=== PATIENT | female | born 1960 | race Caucasian/White ===

== ENCOUNTER 2016-11-28 11:20 | Emergency (ER) | payer MEDICAID ==
[2016-11-28 11:20] VITALS: BMI 24.9
[2016-11-28 11:35] VITALS: BP 131/73; PULSE 63; RESP 18; TEMP 97.7; O2SAT 96
[2016-11-28] MEDS ORDERED: Albuterol-Ipratrop 3 mg / 0.5 (3 ml) UD INH STA (11:49)
[2016-11-28] MEDS ORDERED: Albuterol-Ipratrop 3 mg / 0.5 (3 ml) UD ONE (12:44)
--- NOTE | 2016-11-28 13:00 | RAD ---
HISTORY: R chest wall pain cough COMPARISON: No prior. TECHNIQUE: Chest PA and lateral FINDINGS: LUNGS: No active pulmonary disease. PLEURA: No significant pleural effusion identified. No pneumothorax apparent. CARDIOVASCULAR: Normal. OSSEOUS STRUCTURES: Mild levoscoliosis centered in the lower thoracic region. Old healed fracture right posterior 6 rib VISUALIZED UPPER ABDOMEN: Normal. OTHER FINDINGS: None. IMPRESSION: No active disease.
--- NOTE | 2016-11-28 13:19 | ED PDOC ---
HPI: CCC, URI, Sore Throat Time Seen by Provider: 11/28/16 11:45 Chief Complaint (Nursing): Chest Pain Chief Complaint (Provider): right chest wall pain, cough History Per: Patient History/Exam Limitations: no limitations Onset/Duration Of Symptoms: Days (5) Current Symptoms Are (Timing): Still Present Sick Contacts (Context): None Associated Symptoms: Cough. denies: Sore Throat, Sputum, Sinus Drainage, Myalgias, Nasal Congestion, Vomiting, Diarrhea Severity: Moderate Additional Complaint(s): 56yo female c/o right sided chest wall pain, cough and malaise. States fell about a week ago, was seen at another hospital and told "theres a hairline rib fracture", lives in a snf, using albuterol HFA w some improvement. Denies fever, SOB, syncope or hemoptysis. Past Medical History Vital Signs: Last Vital Signs Temp 97.7 F 11/28/16 11:34 Pulse 63 11/28/16 11:34 Resp 18 11/28/16 11:34 BP 131/73 11/28/16 11:34 Pulse Ox 96 11/28/16 11:34 - Medical History PMH: Anxiety, Arthritis, Asthma, Bipolar Disorder, Depression, Pneumonia, Schizophrenia Denies: Chronic Kidney Disease - Surgical History Surgical History: Back Surgery - Immunization History Hx Tetanus Toxoid Vaccination: No Hx Influenza Vaccination: Yes Hx Pneumococcal Vaccination: Yes - Home Medications Home Medications: Ambulatory Orders Medication Instructions Recorded Albuterol HFA [Ventolin HFA 90 2 puff INH Q4 PRN 08/02/16 mcg/actuation (8 g)] Aspirin [Aspirin Chewable] 81 mg PO DAILY 08/02/16 Naproxen [Naprosyn Tab] 1 tab PO DAILY 08/02/16 Pantoprazole [Protonix EC Tab] 20 mg PO DAILY 08/02/16 Sulfamethoxazole/Trimethoprim 1 tab PO BID #20 tab 08/02/16 [Bactrim DS 800 mg-160 mg] clonazePAM [Klonopin] 1 tab PO DAILY 08/02/16 Azithromycin [Zithromax] 250 mg PO DAILY #6 tab 10/28/16 Fluticasone Nasal [Flonase] 1 spray NS DAILY #1 bottle 10/28/16 Oseltamivir Phosphate [Tamiflu] 75 mg PO BID #10 capsule 10/28/16 Ibuprofen [Motrin] 400 mg PO Q6 #30 tab 10/31/16 predniSONE [predniSONE Tab] 40 mg PO DAILY 3 Days 11/20/16 Albuterol 0.083% [Albuterol 0.083% 2.5 mg IH Q4 PRN #20 neb 11/28/16 Inhal Sandra (2.5 mg/3 ml) UD] Azithromycin [Zithromax] 250 mg PO DAILY #6 tab 11/28/16 Naproxen [Naprosyn] 500 mg PO BID PRN #14 tablet 11/28/16 - Allergies Allergies/Adverse Reactions: Allergies Allergy/AdvReac Type Severity Reaction Status Date / Time No Known Allergies Allergy Verified 11/28/16 11:42 - ECG O2 Sat by Pulse Oximetry: 96 Disposition - Clinical Impression Clinical Impression: Bronchitis, Chest wall pain - Disposition Referrals: [facility] [Outside] Condition: STABLE Additional Instructions: Take medications as directed. Return to ER for any new or worsening symptoms. Prescriptions: Albuterol 0.083% [Albuterol 0.083% Inhal Sandra (2.5 mg/3 ml) UD] 2.5 mg IH Q4 PRN #20 neb PRN Reason: Wheezing Naproxen [Naprosyn] 500 mg PO BID PRN #14 tablet PRN Reason: Pain, Moderate (4-7) Azithromycin [Zithromax] 250 mg PO DAILY #6 tab Instructions: Acute Cough (ED), Chest Wall Pain (ED)
== END 2016-11-28 13:21 | disposition home or self-care (01) ==
LOC: H.ER 11:20
DX: J40 Bronchitis, not specified as acute or chronic (principal); R05 Cough; R07.89 Other chest pain

== ENCOUNTER 2016-12-04 14:47 | Emergency (ER) | payer MEDICAID ==
[2016-12-04 14:47] VITALS: BMI 24.9
[2016-12-04 15:15] VITALS: BP 114/71; PULSE 90; RESP 16; TEMP 98.7; O2SAT 100
--- NOTE | 2016-12-04 15:33 | ED PDOC ---
HPI: General Adult Time Seen by Provider: 12/04/16 15:15 Chief Complaint (Nursing): ENT Problem Chief Complaint (Provider): Throat Pain History Per: Patient History/Exam Limitations: no limitations Onset/Duration Of Symptoms: Days (x2) Current Symptoms Are (Timing): Still Present Severity: Mild Additional Complaint(s): Patient is a 56 year old female presenting to the ED complaining of throat pain x2 day. Denies fever or chills. Past Medical History Reviewed: Historical Data, Nursing Documentation, Vital Signs Vital Signs: Last Vital Signs Temp 98.7 F 12/04/16 15:11 Pulse 90 12/04/16 15:11 Resp 16 12/04/16 15:11 BP 114/71 12/04/16 15:11 Pulse Ox 100 12/04/16 16:41 - Medical History PMH: Anxiety, Arthritis, Asthma, Bipolar Disorder, Depression, Pneumonia, Schizophrenia Denies: Chronic Kidney Disease - Surgical History Surgical History: Back Surgery - Family History Family History: States: No Known Family Hx - Immunization History Hx Tetanus Toxoid Vaccination: No Hx Influenza Vaccination: Yes Hx Pneumococcal Vaccination: Yes - Home Medications Home Medications: Ambulatory Orders Medication Instructions Recorded Albuterol HFA [Ventolin HFA 90 2 puff INH Q4 PRN 08/02/16 mcg/actuation (8 g)] Aspirin [Aspirin Chewable] 81 mg PO DAILY 08/02/16 Naproxen [Naprosyn Tab] 1 tab PO DAILY 08/02/16 Pantoprazole [Protonix EC Tab] 20 mg PO DAILY 08/02/16 Sulfamethoxazole/Trimethoprim 1 tab PO BID #20 tab 08/02/16 [Bactrim DS 800 mg-160 mg] clonazePAM [Klonopin] 1 tab PO DAILY 08/02/16 Azithromycin [Zithromax] 250 mg PO DAILY #6 tab 10/28/16 Fluticasone Nasal [Flonase] 1 spray NS DAILY #1 bottle 10/28/16 Oseltamivir Phosphate [Tamiflu] 75 mg PO BID #10 capsule 10/28/16 Ibuprofen [Motrin] 400 mg PO Q6 #30 tab 10/31/16 predniSONE [predniSONE Tab] 40 mg PO DAILY 3 Days 11/20/16 Albuterol 0.083% [Albuterol 0.083% 2.5 mg IH Q4 PRN #20 neb 11/28/16 Inhal Sandra (2.5 mg/3 ml) UD] Azithromycin [Zithromax] 250 mg PO DAILY #6 tab 11/28/16 Naproxen [Naprosyn] 500 mg PO BID PRN #14 tablet 11/28/16 - Allergies Allergies/Adverse Reactions: Allergies Allergy/AdvReac Type Severity Reaction Status Date / Time No Known Allergies Allergy Verified 12/04/16 15:11 Review of Systems ROS Statement: Except As Marked, All Systems Reviewed And Found Negative Constitutional: Negative for: Fever, Chills ENT: Positive for: Throat Pain Physical Exam - Reviewed Nursing Documentation Reviewed: Yes Vital Signs Reviewed: Yes - Physical Exam Appears: Positive for: Well, Non-toxic, No Acute Distress Head Exam: Positive for: ATRAUMATIC, NORMAL INSPECTION, NORMOCEPHALIC Skin: Positive for: Normal Color, Warm, DRY Eye Exam: Positive for: Normal appearance, EOMI ENT: Positive for: Normal ENT Inspection Neck: Positive for: Normal, Painless ROM Cardiovascular/Chest: Positive for: Regular Rate, Rhythm. Negative for: Gallop , Murmur Respiratory: Positive for: Normal Breath Sounds. Negative for: Accessory Muscle Use, Rhonchi, Respiratory Distress Extremity: Positive for: Normal ROM Neurologic/Psych: Positive for: Alert, Oriented - ECG O2 Sat by Pulse Oximetry: 100 Medical Decision Making Medical Decision Making: Time: 15:20 Impression: 56 y/o female with throat pain Plan: Rapid Strep (-) Scribe Attestation: Documented by Tiffanie Moctezuma acting as a scribe for SANDY Maria. Provider Attestation: All medical record entries made by the Scribe were at my direction and personally dictated by me. I have reviewed the chart and agree that the record accurately reflects my personal performance of the history, physical exam, medical decision making, and the department course for this patient. I have also personally directed, reviewed, and agree with the discharge instructions and disposition. Disposition - Clinical Impression Clinical Impression: Tonsillitis - Patient ED Disposition Is Patient to be Admitted: No Counseled Patient/Family Regarding: Diagnosis, Need For Followup - Disposition Referrals: Bethanie Gallego MD [Primary Care Provider] - Disposition: Routine/Home Disposition Time: 16:41 Condition: GOOD Instructions: Tonsillitis (ED)
== END 2016-12-04 17:08 | disposition home or self-care (01) ==
LOC: H.ER 14:47
DX: J03.90 Acute tonsillitis, unspecified (principal)

== ENCOUNTER 2016-12-17 06:57 | Emergency (ER) | payer MEDICAID ==
[2016-12-17 06:57] VITALS: BMI 24.9
--- NOTE | 2016-12-17 08:11 | ED PDOC ---
HPI: CCC, URI, Sore Throat Time Seen by Provider: 12/17/16 07:27 Chief Complaint (Nursing): ENT Problem Chief Complaint (Provider): ENT Problem History Per: Patient History/Exam Limitations: no limitations Onset/Duration Of Symptoms: Days Current Symptoms Are (Timing): Still Present Location Of Pain: Throat Sick Contacts (Context): None Associated Symptoms: denies: Fever, Chills Ear Symptoms: Bilateral: None Severity: Mild Additional Complaint(s): Patient is a 56 year old female who presents to ED for evaluation of sore throat with cough for 3 days. Patient denies fever. States that she was sleeping in the fpc last night and could not breath well due to the heat. Patient also reports an " equilibrium problem," that has been happening since October. Patient states that while walking she developed a stabbing headache with dizziness but denies head injury and has had normal work up in ED in the past. Past Medical History Reviewed: Historical Data, Nursing Documentation, Vital Signs Vital Signs: Last Vital Signs Temp 98.3 F 12/17/16 11:50 Pulse 73 12/17/16 11:50 Resp 18 12/17/16 11:50 BP 97/56 L 12/17/16 11:50 Pulse Ox 97 12/17/16 11:50 - Medical History PMH: Anxiety, Arthritis, Asthma, Bipolar Disorder, Depression, Pneumonia, Schizophrenia Denies: Chronic Kidney Disease - Surgical History Surgical History: Back Surgery - Family History Family History: States: No Known Family Hx - Living Arrangements Living Arrangements: With Family - Immunization History Hx Tetanus Toxoid Vaccination: No Hx Influenza Vaccination: Yes Hx Pneumococcal Vaccination: Yes - Home Medications Home Medications: Ambulatory Orders Medication Instructions Recorded Albuterol HFA [Ventolin HFA 90 2 puff INH Q4 PRN 08/02/16 mcg/actuation (8 g)] Aspirin [Aspirin Chewable] 81 mg PO DAILY 08/02/16 Naproxen [Naprosyn Tab] 1 tab PO DAILY 08/02/16 Pantoprazole [Protonix EC Tab] 20 mg PO DAILY 08/02/16 Sulfamethoxazole/Trimethoprim 1 tab PO BID #20 tab 08/02/16 [Bactrim DS 800 mg-160 mg] clonazePAM [Klonopin] 1 tab PO DAILY 08/02/16 Azithromycin [Zithromax] 250 mg PO DAILY #6 tab 10/28/16 Fluticasone Nasal [Flonase] 1 spray NS DAILY #1 bottle 10/28/16 Oseltamivir Phosphate [Tamiflu] 75 mg PO BID #10 capsule 10/28/16 Ibuprofen [Motrin] 400 mg PO Q6 #30 tab 10/31/16 predniSONE [predniSONE Tab] 40 mg PO DAILY 3 Days 11/20/16 Albuterol 0.083% [Albuterol 0.083% 2.5 mg IH Q4 PRN #20 neb 11/28/16 Inhal Sandra (2.5 mg/3 ml) UD] Azithromycin [Zithromax] 250 mg PO DAILY #6 tab 11/28/16 Naproxen [Naprosyn] 500 mg PO BID PRN #14 tablet 11/28/16 - Allergies Allergies/Adverse Reactions: Allergies Allergy/AdvReac Type Severity Reaction Status Date / Time No Known Allergies Allergy Verified 12/17/16 07:17 Review of Systems ROS Statement: Except As Marked, All Systems Reviewed And Found Negative Constitutional: Negative for: Fever, Chills ENT: Positive for: Throat Pain. Negative for: Ear Pain Cardiovascular: Negative for: Chest Pain, Palpitations Respiratory: Positive for: Cough, Shortness of Breath Gastrointestinal: Negative for: Nausea, Vomiting, Abdominal Pain Neurological: Positive for: Headache, Dizziness. Negative for: Weakness, Numbness Physical Exam - Reviewed Nursing Documentation Reviewed: Yes Vital Signs Reviewed: Yes - Physical Exam Appears: Positive for: Non-toxic, No Acute Distress Skin: Positive for: Normal Color, Warm Eye Exam: Positive for: Normal appearance ENT: Negative for: Pharyngeal Erythema, Tonsillar Exudate Neck: Positive for: Normal, Painless ROM Cardiovascular/Chest: Positive for: Regular Rate, Rhythm. Negative for: Murmur Respiratory: Positive for: Normal Breath Sounds. Negative for: Respiratory Distress Extremity: Positive for: Normal ROM Neurologic/Psych: Positive for: Alert, physician chief of pathology II-XII (grossly intact ), Oriented, Cerebellar Tests - ECG O2 Sat by Pulse Oximetry: 94 (RA) Pulse Ox Interpretation: Normal - CT Scan/US CT head Other Rad Studies (CT/US): Read By Radiologist, Radiology Report Reviewed Other Rad Interpretation: no acute findings Medical Decision Making Medical Decision Making: Time: 744 Initial impression: Pharyngitis r/o strep Initial plan: -- Flu swab -- Rapid strep -- Motrin PO Scribe Attestation: Documented by Beckie Pickering acting as a scribe for Saw Boyce MD MD Scribe Attestation: All medical record entries made by the Scribe were at my direction and personally dictated by me. I have reviewed the chart and agree that the record accurately reflects my personal performance of the history, physical exam, medical decision making, and the department course for this patient. I have also personally directed, reviewed, and agree with the discharge instructions and disposition. Disposition - Clinical Impression Clinical Impression: Pharyngitis, Dizziness - Patient ED Disposition Is Patient to be Admitted: No Doctor Will See Patient In The: Office Counseled Patient/Family Regarding: Studies Performed, Diagnosis, Need For Followup - Disposition Referrals: [facility] [Outside] Disposition: Routine/Home Disposition Time: 12:15 Condition: GOOD Additional Instructions: Take tylenol or motrin for sore throat. Follow up with your PCP in 2-3 days. Instructions: Pharyngitis (ED)
--- NOTE | 2016-12-17 11:11 | CT ---
PROCEDURE: CT HEAD WITHOUT CONTRAST. HISTORY: dizziness COMPARISON: None available. TECHNIQUE: Axial computed tomography images were obtained through the head/brain without intravenous contrast. Coronal and sagittal reconstructed images. Radiation dose: Total exam DLP = 1626.31 mGy-cm. This CT exam was performed using one or more of the following dose reduction techniques: Automated exposure control, adjustment of the mA and/or kV according to patient size, and/or use of iterative reconstruction technique. FINDINGS: HEMORRHAGE: No intracranial hemorrhage. BRAIN: No mass effect or edema. No atrophy or chronic microvascular ischemic changes. VENTRICLES: Unremarkable. No hydrocephalus. CALVARIUM: Unremarkable. PARANASAL SINUSES: Unremarkable as visualized. No significant inflammatory changes. MASTOID AIR CELLS: Unremarkable as visualized. No inflammatory changes. OTHER FINDINGS: None. IMPRESSION: No acute intracranial abnormalities. No significant findings to account for the clinical presentation.
[2016-12-17 11:51] VITALS: BP 97/56; PULSE 73; RESP 18; TEMP 98.3
[2016-12-17 12:17] VITALS: O2SAT 94
== END 2016-12-17 14:35 | disposition home or self-care (01) ==
LOC: H.ER 06:57
DX: J02.9 Acute pharyngitis, unspecified (principal); F20.9 Schizophrenia, unspecified; F31.9 Bipolar disorder, unspecified; F41.9 Anxiety disorder, unspecified; R42 Dizziness and giddiness; Z79.82 Long term (current) use of aspirin; R05 Cough; R51 Headache

== ENCOUNTER 2016-12-18 10:50 | Emergency (ER) | payer MEDICAID ==
[2016-12-18 10:55] VITALS: BP 115/61; PULSE 93; O2SAT 99; BMI 28.9
--- NOTE | 2016-12-18 11:41 | ED PDOC ---
HPI: General Adult Time Seen by Provider: 12/18/16 11:22 Chief Complaint (Nursing): Weakness/Neurological Deficit Chief Complaint (Provider): body aches History Per: Patient History/Exam Limitations: no limitations Additional Complaint(s): 56yo female comes to the ED complaining of fever, cough, chills. Also reports body aches. Patient was seen here yesterday for the same. She had a flu shot this season. Past Medical History Reviewed: Historical Data, Nursing Documentation, Vital Signs Vital Signs: Last Vital Signs Temp 98.1 F 12/18/16 11:52 Pulse 93 H 12/18/16 10:54 Resp BP 115/61 12/18/16 10:54 Pulse Ox 99 12/18/16 14:18 - Medical History PMH: Anxiety, Arthritis, Asthma, Bipolar Disorder, Depression, Pneumonia, Schizophrenia Denies: Chronic Kidney Disease - Surgical History Surgical History: Back Surgery - Family History Family History: States: Unknown Family Hx - Social History Drugs: Denies - Immunization History Hx Tetanus Toxoid Vaccination: No Hx Influenza Vaccination: Yes Hx Pneumococcal Vaccination: Yes - Home Medications Home Medications: Ambulatory Orders Medication Instructions Recorded Albuterol HFA [Ventolin HFA 90 2 puff INH Q4 PRN 08/02/16 mcg/actuation (8 g)] Aspirin [Aspirin Chewable] 81 mg PO DAILY 08/02/16 Naproxen [Naprosyn Tab] 1 tab PO DAILY 08/02/16 Pantoprazole [Protonix EC Tab] 20 mg PO DAILY 08/02/16 Sulfamethoxazole/Trimethoprim 1 tab PO BID #20 tab 08/02/16 [Bactrim DS 800 mg-160 mg] clonazePAM [Klonopin] 1 tab PO DAILY 08/02/16 Azithromycin [Zithromax] 250 mg PO DAILY #6 tab 10/28/16 Fluticasone Nasal [Flonase] 1 spray NS DAILY #1 bottle 10/28/16 Oseltamivir Phosphate [Tamiflu] 75 mg PO BID #10 capsule 10/28/16 Ibuprofen [Motrin] 400 mg PO Q6 #30 tab 10/31/16 predniSONE [predniSONE Tab] 40 mg PO DAILY 3 Days 11/20/16 Albuterol 0.083% [Albuterol 0.083% 2.5 mg IH Q4 PRN #20 neb 11/28/16 Inhal Sandra (2.5 mg/3 ml) UD] Azithromycin [Zithromax] 250 mg PO DAILY #6 tab 11/28/16 Naproxen [Naprosyn] 500 mg PO BID PRN #14 tablet 11/28/16 - Allergies Allergies/Adverse Reactions: Allergies Allergy/AdvReac Type Severity Reaction Status Date / Time No Known Allergies Allergy Verified 12/17/16 07:17 Review of Systems ROS Statement: Except As Marked, All Systems Reviewed And Found Negative Constitutional: Positive for: Fever, Chills ENT: Positive for: Throat Pain Respiratory: Positive for: Cough Physical Exam - Reviewed Nursing Documentation Reviewed: Yes Vital Signs Reviewed: Yes - Physical Exam Appears: Positive for: Well, Non-toxic, No Acute Distress Head Exam: Positive for: ATRAUMATIC, NORMAL INSPECTION, NORMOCEPHALIC Skin: Positive for: Warm, Dry Eye Exam: Positive for: EOMI, PERRL ENT: Positive for: Other (tonsillar erythema) Cardiovascular/Chest: Positive for: Tachycardia Respiratory: Positive for: Normal Breath Sounds. Negative for: Rales, Rhonchi, Wheezing Gastrointestinal/Abdominal: Positive for: Soft. Negative for: Tenderness Extremity: Positive for: Normal ROM - Laboratory Results Result Diagrams: 12/18/16 12:13 12/18/16 12:13 - ECG O2 Sat by Pulse Oximetry: 99 - Progress Re-evaluation Time: 14:00 Condition: Re-examined, Improved Medical Decision Making Medical Decision Makin flu and strep were negative yesterday. Differential includes pneumonia, URI, influenza, tonsillitis. plan: CXR, labs. CT Head w/o Impression (from 12/17/16) No acute intracranial abnormalities. No significant findings to account for the clinical presentation. CXR impression: no active disease 1410 On reassessment patient feeling better. She is stable for discharge. Disposition - Clinical Impression Clinical Impression: URI, acute, Viral syndrome - Patient ED Disposition Is Patient to be Admitted: No Doctor Will See Patient In The: Office Counseled Patient/Family Regarding: Studies Performed, Diagnosis, Need For Followup - Disposition Referrals: [facility] [Outside] Disposition: Routine/Home Disposition Time: 14:10 Condition: GOOD Additional Instructions: Follow up with your PCP in 2-3 days. Instructions: Upper Respiratory Infection (ED) Additional Comments - Additional Comments Additional Comments: Scribe Attestation: Documented by Rinku Zayas acting as a scribe for Saw Boyce MD. Scribe Attestation: All medical record entries made by the Scribe were at my direction and personally dictated by me. I have reviewed the chart and agree that the record accurately reflects my personal performance of the history, physical exam, medical decision making, and the department course for this patient. I have also personally directed, reviewed, and agree with the discharge instructions and disposition.
[2016-12-18 11:52] VITALS: TEMP 98.1
[2016-12-18 12:12] LABS: VENOUS BLOOD GAS BASE EXCESS 2.3 mmol/L (0.0-2.0); VENOUS BLOOD GAS PCO2 39 mmHg (40-60); VENOUS BLOOD PH 7.44 (7.32-7.43)
[2016-12-18 12:26] LABS: BASO % 0.3 % (0.0-2.0); EOS % 0.1 % (0.0-4.0); HEMATOCRIT 31.9 % (34.0-47.0); LYMPH # 0.7 K/uL (1.0-4.3); MEAN CELL VOLUME 74.9 fl (81.0-99.0); MEAN CORPUSCULAR HEMOGLOBIN 24.1 pg (27.0-31.0); MEAN CORPUSCULAR HGB CONC 32.1 g/dL (33.0-37.0); MEAN PLATELET VOLUME 7.8 fl (7.2-11.7); MONO # 0.7 K/uL (0.0-0.8); MONO % 8.4 % (0.0-10.0); NEUT # 6.5 K/uL (1.8-7.0); NEUT % 82.2 % (50.0-75.0); PLATELET COUNT 182 K/uL (130-400); RED CELL DISTRIBUTION WIDTH 14.5 % (11.5-14.5); WHITE BLOOD COUNT 7.9 K/uL (4.8-10.8)
[2016-12-18 12:35] LABS: BLOOD UREA NITROGEN 14 mg/dl (7-17); CALCIUM 8.8 mg/dL (8.4-10.2); CARBON DIOXIDE 22 mmol/L (22-30); CHLORIDE 102 mmol/L (98-107); GFR AFRICAN-AMERICAN > 60; GLUCOSE,RANDOM 109 mg/dL (65-105); POTASSIUM 3.1 MMOL/L (3.6-5.0); SODIUM 139 mmol/l (132-148)
--- NOTE | 2016-12-18 12:35 | RAD ---
PROCEDURE: CHEST RADIOGRAPH, 1 VIEW HISTORY: cough fever COMPARISON: 11/28/2016 FINDINGS: LUNGS: Clear. PLEURA: No pneumothorax or pleural fluid seen. CARDIOVASCULAR: Normal. OSSEOUS STRUCTURES: No significant abnormalities. VISUALIZED UPPER ABDOMEN: Normal. OTHER FINDINGS: None. IMPRESSION: No active disease.
[2016-12-18] MEDS: Potassium Chloride 20 mEq ER Tab PO ONE (12:47)
[2016-12-18 13:40] LABS: NEUTROPHIL 82 % (42-75); REACTIVE LYMPHOCYTES 1 % (0-0); TOTAL CELLS COUNTED 100
[2016-12-18 13:41] LABS: LARGE PLATELETS PRESENT
== END 2016-12-18 14:33 | disposition home or self-care (01) ==
LOC: H.ER 10:50
DX: J06.9 Acute upper respiratory infection, unspecified (principal); R50.9 Fever, unspecified; R05 Cough; F31.9 Bipolar disorder, unspecified; F20.9 Schizophrenia, unspecified; F41.9 Anxiety disorder, unspecified; Z79.82 Long term (current) use of aspirin; B34.9 Viral infection, unspecified; Z87.09 Personal history of other diseases of the respiratory system

== ENCOUNTER 2016-12-19 19:35 | Emergency (ER) | payer MEDICAID ==
[2016-12-19 19:36] VITALS: BMI 28.9
[2016-12-19 20:41] LABS: BASO % 0.2 % (0.0-2.0); EOS % 0.2 % (0.0-4.0); HEMATOCRIT 30.6 % (34.0-47.0); LYMPH # 1.1 K/uL (1.0-4.3); LYMPH % 15.7 % (20.0-40.0); MEAN CELL VOLUME 74.1 fl (81.0-99.0); MEAN CORPUSCULAR HEMOGLOBIN 23.8 pg (27.0-31.0); MEAN CORPUSCULAR HGB CONC 32.1 g/dL (33.0-37.0); MONO # 0.7 K/uL (0.0-0.8); MONO % 9.7 % (0.0-10.0); NEUT # 5.2 K/uL (1.8-7.0); NEUT % 74.2 % (50.0-75.0); RED CELL DISTRIBUTION WIDTH 14.7 % (11.5-14.5)
[2016-12-19 20:50] LABS: ALKALINE PHOSPHATASE 118 U/L (38-126); ALT/SGPT 35 U/L (9-52); AST/SGOT 32 U/L (14-36); BILIRUBIN,TOTAL 0.4 mg/dl (0.2-1.3); BLOOD UREA NITROGEN 19 mg/dl (7-17); CALCIUM 8.6 mg/dL (8.4-10.2); CARBON DIOXIDE 21 mmol/L (22-30); CHLORIDE 102 mmol/L (98-107); GFR AFRICAN-AMERICAN > 60; GLUCOSE,RANDOM 99 mg/dL (65-105); LIPASE 86 U/L (23-300); SODIUM 133 mmol/l (132-148); TOTAL PROTEIN 6.9 G/DL (6.3-8.2)
--- NOTE | 2016-12-19 21:02 | ED PDOC ---
HPI: Abdomen Time Seen by Provider: 12/19/16 19:41 Chief Complaint (Nursing): Abdominal Pain Chief Complaint (Provider): Abdominal Pain History Per: Patient History/Exam Limitations: no limitations Onset/Duration Of Symptoms: Days (x1) Outside of [place] travel?: No Current Symptoms Are (Timing): Still Present Severity: Moderate Location Of Pain/Discomfort: Diffuse Quality Of Discomfort: Unable To Describe Associated Symptoms: denies: Fever, Vomiting, Diarrhea, Loss Of Appetite, Urinary Symptoms Additional Complaint(s): Agata Badillo is a 56 year old female, with no pertinent past medical history, who presents to the ED on 12/19/16 for the evaluation of moderate, diffuse abdominal pain that she has experienced x1 day. Denies vomiting, diarrhea, loss of appetite or urinary complaints, though she does report experiencing some intermittent, subjective fevers since 11/24/16. Of note, patient was evaluated in the ED yesterday for a sinus issue, after which she had been discharged home. Patient reports being homeless and admits to bed seeking behavior, though she states that the onset of abdominal pain is what brought her in today. PMD: Clinic Past Medical History Reviewed: Historical Data, Nursing Documentation, Vital Signs Vital Signs: Last Vital Signs Temp 98.8 F 12/19/16 23:24 Pulse 77 12/19/16 23:24 Resp 16 12/19/16 23:24 BP 107/56 L 12/19/16 23:24 Pulse Ox 95 12/19/16 23:24 - Medical History PMH: Anxiety, Arthritis, Asthma, Bipolar Disorder, Depression, Pneumonia, Schizophrenia Denies: Chronic Kidney Disease Other PMH: heart murmur - Surgical History Surgical History: Back Surgery - Family History Family History: States: Unknown Family Hx - Social History Current smoker - smoking cessation education provided: No Alcohol: None Drugs: Denies - Immunization History Hx Tetanus Toxoid Vaccination: No Hx Influenza Vaccination: Yes Hx Pneumococcal Vaccination: Yes - Home Medications Home Medications: Ambulatory Orders Medication Instructions Recorded Albuterol HFA [Ventolin HFA 90 2 puff INH Q4 PRN 08/02/16 mcg/actuation (8 g)] Aspirin [Aspirin Chewable] 81 mg PO DAILY 08/02/16 Naproxen [Naprosyn Tab] 1 tab PO DAILY 08/02/16 Pantoprazole [Protonix EC Tab] 20 mg PO DAILY 08/02/16 Sulfamethoxazole/Trimethoprim 1 tab PO BID #20 tab 08/02/16 [Bactrim DS 800 mg-160 mg] clonazePAM [Klonopin] 1 tab PO DAILY 08/02/16 Azithromycin [Zithromax] 250 mg PO DAILY #6 tab 10/28/16 Fluticasone Nasal [Flonase] 1 spray NS DAILY #1 bottle 10/28/16 Oseltamivir Phosphate [Tamiflu] 75 mg PO BID #10 capsule 10/28/16 Ibuprofen [Motrin] 400 mg PO Q6 #30 tab 10/31/16 predniSONE [predniSONE Tab] 40 mg PO DAILY 3 Days 11/20/16 Albuterol 0.083% [Albuterol 0.083% 2.5 mg IH Q4 PRN #20 neb 11/28/16 Inhal Sandra (2.5 mg/3 ml) UD] Azithromycin [Zithromax] 250 mg PO DAILY #6 tab 11/28/16 Naproxen [Naprosyn] 500 mg PO BID PRN #14 tablet 11/28/16 Dicyclomine [Bentyl] 20 mg PO Q12 PRN #20 tab 12/19/16 - Allergies Allergies/Adverse Reactions: Allergies Allergy/AdvReac Type Severity Reaction Status Date / Time No Known Allergies Allergy Verified 12/17/16 07:17 Review of Systems Constitutional: Positive for: Fever (subjective) Gastrointestinal: Positive for: Abdominal Pain (diffuse). Negative for: Vomiting, Diarrhea, Other (no loss of appetite) Genitourinary Female: Negative for: Dysuria, Frequency, Hematuria Physical Exam - Reviewed Nursing Documentation Reviewed: Yes Vital Signs Reviewed: Yes - Physical Exam Appears: Positive for: Non-toxic, No Acute Distress Head Exam: Positive for: ATRAUMATIC, NORMOCEPHALIC Skin: Positive for: Normal Color, Warm, Dry Eye Exam: Positive for: Normal appearance, PERRL ENT: Positive for: Normal ENT Inspection Neck: Positive for: Normal, Painless ROM, Supple Cardiovascular/Chest: Positive for: Regular Rate, Rhythm Respiratory: Positive for: Normal Breath Sounds. Negative for: Respiratory Distress Gastrointestinal/Abdominal: Positive for: Normal Exam, Soft. Negative for: Tenderness Back: Positive for: Normal Inspection Extremity: Positive for: Normal ROM (moving all extremities well) Neurologic/Psych: Positive for: Alert, Oriented - Laboratory Results Result Diagrams: 12/19/16 20:30 12/19/16 20:30 - ECG O2 Sat by Pulse Oximetry: 99 (RA) Pulse Ox Interpretation: Normal Medical Decision Making Medical Decision Makin:41 Initial Impression: 56 year old female with abdominal pain and subjective fever Initial Plan: * EKG * Labs * Reevaluation 2300: Labs reviewed, show no clinically significant abnormalities and patient stable for d/c. Dx: abdominal pain Advised patient on possibility of having perimenopausal changes that could explain her subjective sense of fever F/U in the clinic Rx: Bentyl Scribe Attestation: Documented by Audrey Montano, acting as a scribe for Chris Diamond MD. Provider Scribe Attestation: All medical record entries made by the Scribe were at my direction and personally dictated by me. I have reviewed the chart and agree that the record accurately reflects my personal performance of the history, physical exam, medical decision making, and the department course for this patient. I have also personally directed, reviewed, and agree with the discharge instructions and disposition. Disposition - Clinical Impression Clinical Impression: Abdominal pain - Patient ED Disposition Is Patient to be Admitted: No Counseled Patient/Family Regarding: Studies Performed, Diagnosis, Need For Followup, Rx Given - Disposition Disposition: Routine/Home Disposition Time: 23:00 Condition: STABLE Prescriptions: Dicyclomine [Bentyl] 20 mg PO Q12 PRN #20 tab PRN Reason: abdominal pain Instructions: Menopause (ED), Abdominal Pain (ED)
[2016-12-19 21:11] LABS: RBC URINE 3 /hpf (0-3); URINE BILIRUBIN NEGATIVE (NEGATIVE); URINE BLOOD SMALL (NEGATIVE); URINE COLOR YELLOW (YELLOW); URINE GLUCOSE (UA) NEG (Normal); URINE KETONE NEGATIVE (NEGATIVE); URINE LEUKOCYTE ESTERASE NEG Leu/uL (Negative); URINE PROTEIN NEGATIVE (NEGATIVE); URINE UROBILINOGEN 0.2-1.0 mg/dL (0.2-1.0); WBC URINE 1 /hpf (0-5)
[2016-12-19 23:25] VITALS: BP 107/56; PULSE 77; RESP 16; TEMP 98.8
[2016-12-20 00:15] VITALS: O2SAT 99
--- NOTE | 2016-12-22 05:47 | CARD ---
APPROVED REPORT EKG Measurement Heart [id number] <Conclusion> Normal sinus rhythm Normal ECG
== END 2016-12-19 23:32 | disposition home or self-care (01) ==
LOC: H.ER 19:35
DX: R10.9 Unspecified abdominal pain (principal); N95.1 Menopausal and female climacteric states; F20.9 Schizophrenia, unspecified; F31.9 Bipolar disorder, unspecified; F41.9 Anxiety disorder, unspecified; R50.9 Fever, unspecified; Z79.82 Long term (current) use of aspirin

== ENCOUNTER 2017-01-08 12:29 | Emergency (ER) | payer MEDICAID ==
[2017-01-08 12:29] VITALS: BMI 28.9
[2017-01-08 12:42] VITALS: BP 105/74; PULSE 70; RESP 18; TEMP 97.4; O2SAT 100
[2017-01-08] MEDS ORDERED: Naproxen 500 MG TAB PO ONE ×2 (12:49→13:01)
--- NOTE | 2017-01-08 13:06 | ED PDOC ---
Upper Extremity Pain/Injury Time Seen by Provider: 01/08/17 12:43 Chief Complaint (Nursing): Upper Extremity Problem/Injury Chief Complaint (Provider): Upper Extremity Problem/Injury History Per: Patient History/Exam Limitations: no limitations Onset/Duration Of Symptoms: Days (x1) Additional Complaint(s): 12:43 Agata Badillo, 56 year old female presents to the ED on 01/08/17 with pain in her neck localized to the right side after she tripped and fell forward around 21:00 last night. The patient was caught by her friends before she fell down, but hyper flexed her neck. The patient denies any head injury, headache, nausea, vomiting, or loss of consciousness. Provider: None Provided Past Medical History Reviewed: Historical Data, Nursing Documentation, Vital Signs Vital Signs: Last Vital Signs Temp 97.4 F L 01/08/17 12:40 Pulse 70 01/08/17 12:40 Resp 18 01/08/17 12:40 BP 105/74 01/08/17 12:40 Pulse Ox 100 01/08/17 12:40 - Medical History PMH: Anxiety, Arthritis, Asthma, Bipolar Disorder, Depression, Pneumonia, Schizophrenia Denies: Chronic Kidney Disease - Surgical History Surgical History: Back Surgery - Family History Family History: States: Unknown Family Hx - Immunization History Hx Tetanus Toxoid Vaccination: No Hx Influenza Vaccination: Yes Hx Pneumococcal Vaccination: Yes - Home Medications Home Medications: Ambulatory Orders Medication Instructions Recorded Albuterol HFA [Ventolin HFA 90 2 puff INH Q4 PRN 08/02/16 mcg/actuation (8 g)] Aspirin [Aspirin Chewable] 81 mg PO DAILY 08/02/16 Naproxen [Naprosyn Tab] 1 tab PO DAILY 08/02/16 Pantoprazole [Protonix EC Tab] 20 mg PO DAILY 08/02/16 Sulfamethoxazole/Trimethoprim 1 tab PO BID #20 tab 08/02/16 [Bactrim DS 800 mg-160 mg] clonazePAM [Klonopin] 1 tab PO DAILY 08/02/16 Azithromycin [Zithromax] 250 mg PO DAILY #6 tab 10/28/16 Fluticasone Nasal [Flonase] 1 spray NS DAILY #1 bottle 10/28/16 Oseltamivir Phosphate [Tamiflu] 75 mg PO BID #10 capsule 10/28/16 Ibuprofen [Motrin] 400 mg PO Q6 #30 tab 10/31/16 predniSONE [predniSONE Tab] 40 mg PO DAILY 3 Days 11/20/16 Albuterol 0.083% [Albuterol 0.083% 2.5 mg IH Q4 PRN #20 neb 11/28/16 Inhal Sandra (2.5 mg/3 ml) UD] Azithromycin [Zithromax] 250 mg PO DAILY #6 tab 11/28/16 Naproxen [Naprosyn] 500 mg PO BID PRN #14 tablet 11/28/16 Dicyclomine [Bentyl] 20 mg PO Q12 PRN #20 tab 12/19/16 Cyclobenzaprine [Cyclobenzaprine 10 mg PO Q8 PRN #10 tab 01/08/17 HCl] - Allergies Allergies/Adverse Reactions: Allergies Allergy/AdvReac Type Severity Reaction Status Date / Time No Known Allergies Allergy Verified 12/17/16 07:17 Review of Systems Gastrointestinal: Negative for: Nausea, Vomiting Musculoskeletal: Positive for: Neck Pain (localized to the right side). Negative for: Other (No head injury) Neurological: Negative for: Headache, Other (no loss of consciousness) Physical Exam - Reviewed Nursing Documentation Reviewed: Yes Vital Signs Reviewed: Yes - Physical Exam Appears: Positive for: Non-toxic, No Acute Distress Head Exam: Positive for: ATRAUMATIC, NORMOCEPHALIC Skin: Positive for: Normal Color, Warm, Dry Eye Exam: Positive for: Normal appearance ENT: Positive for: Normal ENT Inspection Neck: Positive for: Pain On Movement Of Neck (right sided paracervical muscle tenderness) Cardiovascular/Chest: Positive for: Regular Rate, Rhythm, Chest Non Tender Respiratory: Positive for: Normal Breath Sounds. Negative for: Respiratory Distress Gastrointestinal/Abdominal: Positive for: Normal Exam, Soft. Negative for: Tenderness, Mass, Distended, Guarding, Rebound Back: Positive for: Normal Inspection. Negative for: L CVA Tenderness (no cervical tenderness), R CVA Tenderness (no cervical tenderness), Vertebral Tenderness Extremity: Positive for: Other (equal field mechanical meter tester strength bilaterally) Neurologic/Psych: Positive for: Alert, Oriented (x3) - ECG O2 Sat by Pulse Oximetry: 100 (RA) Pulse Ox Interpretation: Normal - Radiology X-Ray: Interpreted by Me (C-spine x-ray) X-Ray Interpretation: No Acute Disease - Progress Re-evaluation Time: 14:19 Condition: Re-examined, Improved Medical Decision Making Medical Decision Makin:43 Initial Impression: Upper extremity injury/problem Initial Plan: * Cervical Spine AP & Lateral [RAD] Stat * Flexeril 10 mg PO Once * Naproxen 500 mg PO Once * Reevaluation Scribe~Attestation: Documented by Donya Davis, acting as a~scribe~for Judson Monroy PA-C. Provider~Scribe~Attestation: All medical record entries made by the~Scribe~were at my direction and personally dictated by me. I have reviewed the chart and agree that the record accurately reflects my personal performance of the history, physical exam, medical decision making, and the department course for this patient. I have also personally directed, reviewed, and agree with the discharge instructions and disposition. Disposition - Clinical Impression Clinical Impression: Cervical sprain - Patient ED Disposition Is Patient to be Admitted: No - Disposition Referrals: [facility] [Outside] Disposition: Routine/Home Disposition Time: 14:19 Condition: IMPROVED Prescriptions: Cyclobenzaprine [Cyclobenzaprine HCl] 10 mg PO Q8 PRN #10 tab PRN Reason: Muscle Spasm Instructions: Cervical Sprain (ED) Print Language: NEPALI
--- NOTE | 2017-01-08 15:02 | RAD ---
PROCEDURE: Cervical Spine Radiographs. HISTORY: Pain. No history of recent/ related trauma provided COMPARISON: None. FINDINGS: BONES: Moderate kyphosis replaces anatomic lordosis. DISC SPACES: Disc degenerative changes C4-5, C5-6, C6-7. SOFT TISSUES: Normal. No prevertebral soft tissue swelling. OTHER FINDINGS: None. IMPRESSION: No acute findings related to/accounting for the clinical presentation.
== END 2017-01-08 16:31 | disposition home or self-care (01) ==
LOC: H.ER 12:29
DX: S13.4XXA Sprain of ligaments of cervical spine, initial encounter (principal); W19.XXXA Unspecified fall, initial encounter; Y92.89 Other specified places as the place of occurrence of the external cause; F20.9 Schizophrenia, unspecified; F31.9 Bipolar disorder, unspecified; F41.9 Anxiety disorder, unspecified; J45.909 Unspecified asthma, uncomplicated; Z79.82 Long term (current) use of aspirin

== ENCOUNTER 2017-02-11 14:32 | Emergency (ER) | payer MEDICAID ==
[2017-02-11 14:32] VITALS: BMI 28.9
[2017-02-11 14:49] VITALS: BP 110/69; PULSE 77; RESP 16; TEMP 97.7; O2SAT 100
[2017-02-11] MEDS ORDERED: TDAP Vaccine 0.5 mL Syr IM ONE (15:26)
--- NOTE | 2017-02-11 15:40 | ED PDOC ---
HPI: General Adult Time Seen by Provider: 02/11/17 15:21 Chief Complaint (Nursing): Abnormal Skin Integrity History Per: Patient Additional Complaint(s): Pt. states she is having pain to the L 5th toe x several days. Denies trauma, fever, hx of DM, numbness, tingling. Past Medical History Reviewed: Historical Data, Nursing Documentation, Vital Signs Vital Signs: Last Vital Signs Temp 97.7 F 02/11/17 14:44 Pulse 77 02/11/17 14:44 Resp 16 02/11/17 14:44 BP 110/69 02/11/17 14:44 Pulse Ox 100 02/11/17 14:44 - Medical History PMH: Anxiety, Arthritis, Asthma, Bipolar Disorder, Depression, Pneumonia, Schizophrenia Denies: Diabetes, Chronic Kidney Disease - Surgical History Surgical History: Back Surgery - Family History Family History: States: Unknown Family Hx - Immunization History Hx Tetanus Toxoid Vaccination: No Hx Influenza Vaccination: Yes Hx Pneumococcal Vaccination: Yes - Home Medications Home Medications: Ambulatory Orders Medication Instructions Recorded Albuterol HFA [Ventolin HFA 90 2 puff INH Q4 PRN 08/02/16 mcg/actuation (8 g)] Aspirin [Aspirin Chewable] 81 mg PO DAILY 08/02/16 Naproxen [Naprosyn Tab] 1 tab PO DAILY 08/02/16 Pantoprazole [Protonix EC Tab] 20 mg PO DAILY 08/02/16 clonazePAM [Klonopin] 1 tab PO DAILY 08/02/16 Fluticasone Nasal [Flonase] 1 spray NS DAILY #1 bottle 10/28/16 Ibuprofen [Motrin] 400 mg PO Q6 #30 tab 10/31/16 predniSONE [predniSONE Tab] 40 mg PO DAILY 3 Days 11/20/16 Albuterol 0.083% [Albuterol 0.083% 2.5 mg IH Q4 PRN #20 neb 11/28/16 Inhal Sandra (2.5 mg/3 ml) UD] Naproxen [Naprosyn] 500 mg PO BID PRN #14 tablet 11/28/16 Dicyclomine [Bentyl] 20 mg PO Q12 PRN #20 tab 12/19/16 Cyclobenzaprine [Cyclobenzaprine 10 mg PO Q8 PRN #10 tab 01/08/17 HCl] FLUoxetine [Prozac] 10 mg PO DAILY 01/24/17 - Allergies Allergies/Adverse Reactions: Allergies Allergy/AdvReac Type Severity Reaction Status Date / Time No Known Allergies Allergy Verified 02/11/17 14:44 Review of Systems ROS Statement: Except As Marked, All Systems Reviewed And Found Negative Physical Exam - Physical Exam Appears: Positive for: Well, Non-toxic, No Acute Distress Skin: Positive for: Normal Color, Warm. Negative for: Rash Extremity: Positive for: Normal ROM, Other (Superficial abrasion without erythema, swelling, or discharge on plantar surface of L 5th toe without ulcer formation) - ECG O2 Sat by Pulse Oximetry: 100 - Progress ED Course And Treament: Wound cleansed. Bacitracin ointment applied. Tetanus prophylaxis administered. Disposition - Clinical Impression Clinical Impression: Abrasion - Patient ED Disposition Is Patient to be Admitted: No - Disposition Referrals: [facility] [Outside] Disposition: Routine/Home Disposition Time: 15:42 Condition: STABLE Instructions: Abrasion (ED) Print Language: MAORI
== END 2017-02-11 16:11 | disposition home or self-care (01) ==
LOC: H.ER 14:32
DX: T14.8 Other injury of unspecified body region (principal); W22.8XXA Striking against or struck by other objects, initial encounter; Y92.89 Other specified places as the place of occurrence of the external cause; F20.9 Schizophrenia, unspecified; F31.9 Bipolar disorder, unspecified; F41.9 Anxiety disorder, unspecified; J45.909 Unspecified asthma, uncomplicated; Z79.82 Long term (current) use of aspirin

== ENCOUNTER 2017-02-28 11:31 | Emergency (ER) | payer MEDICAID ==
[2017-02-28 11:31] VITALS: BMI 28.9
[2017-02-28 11:34] VITALS: BP 103/72; PULSE 60; RESP 19; TEMP 97.9; O2SAT 99
--- NOTE | 2017-02-28 12:09 | ED PDOC ---
Lower Extremity Pain/Injury Time Seen by Provider: 02/28/17 11:51 Chief Complaint (Nursing): Lower Extremity Problem/Injury History Per: Patient History/Exam Limitations: no limitations Onset/Duration Of Symptoms: Gradual (chronic) Current Symptoms Are (Timing): Still Present Severity: Mild Additional History Per: Patient Additional Complaint(s): diffuse le numbness chronic per patient. no back pain no n/t/w, bowel or bladder retention or incontinence. Past Medical History Reviewed: Historical Data, Nursing Documentation, Vital Signs Vital Signs: Last Vital Signs Temp 97.9 F 02/28/17 11:34 Pulse 60 02/28/17 11:34 Resp 19 02/28/17 11:34 BP 103/72 02/28/17 11:34 Pulse Ox 99 02/28/17 11:34 - Medical History PMH: Anxiety, Arthritis, Asthma, Bipolar Disorder, Depression, Pneumonia, Schizophrenia Denies: Diabetes, Chronic Kidney Disease - Surgical History Surgical History: Back Surgery - Family History Family History: States: Unknown Family Hx - Living Arrangements Living Arrangements: With Family - Social History Drugs: Denies - Immunization History Hx Tetanus Toxoid Vaccination: No Hx Influenza Vaccination: Yes Hx Pneumococcal Vaccination: Yes - Home Medications Home Medications: Ambulatory Orders Medication Instructions Recorded Albuterol HFA [Ventolin HFA 90 2 puff INH Q4 PRN 08/02/16 mcg/actuation (8 g)] Aspirin [Aspirin Chewable] 81 mg PO DAILY 08/02/16 Naproxen [Naprosyn Tab] 1 tab PO DAILY 08/02/16 Pantoprazole [Protonix EC Tab] 20 mg PO DAILY 08/02/16 clonazePAM [Klonopin] 1 tab PO DAILY 08/02/16 Fluticasone Nasal [Flonase] 1 spray NS DAILY #1 bottle 10/28/16 Ibuprofen [Motrin] 400 mg PO Q6 #30 tab 10/31/16 predniSONE [predniSONE Tab] 40 mg PO DAILY 3 Days 11/20/16 Albuterol 0.083% [Albuterol 0.083% 2.5 mg IH Q4 PRN #20 neb 11/28/16 Inhal Sandra (2.5 mg/3 ml) UD] Naproxen [Naprosyn] 500 mg PO BID PRN #14 tablet 11/28/16 Dicyclomine [Bentyl] 20 mg PO Q12 PRN #20 tab 12/19/16 Cyclobenzaprine [Cyclobenzaprine 10 mg PO Q8 PRN #10 tab 01/08/17 HCl] FLUoxetine [Prozac] 10 mg PO DAILY 01/24/17 - Allergies Allergies/Adverse Reactions: Allergies Allergy/AdvReac Type Severity Reaction Status Date / Time No Known Allergies Allergy Verified 02/28/17 11:36 Review of Systems ROS Statement: Except As Marked, All Systems Reviewed And Found Negative Constitutional: Negative for: Fever, Chills Cardiovascular: Negative for: Chest Pain, Palpitations Respiratory: Negative for: Cough, Shortness of Breath Gastrointestinal: Negative for: Nausea, Vomiting, Abdominal Pain Neurological: Positive for: Numbness (chronic le numbness). Negative for: Weakness, Confusion, Seizures, Altered Mental Status, Headache, Dizziness Physical Exam - Reviewed Nursing Documentation Reviewed: Yes Vital Signs Reviewed: Yes - Physical Exam Appears: Positive for: Well, No Acute Distress Head Exam: Positive for: ATRAUMATIC, NORMAL INSPECTION, NORMOCEPHALIC Eye Exam: Positive for: Normal appearance, EOMI, PERRL Neck: Positive for: Normal, Painless ROM, Supple. Negative for: Decreased ROM, Limited ROM, Trachea Midline Cardiovascular/Chest: Positive for: Regular Rate, Rhythm. Negative for: Chest Non Tender, Edema, Gallop, Murmur, Bradycardia, Tachycardia Respiratory: Positive for: Normal Breath Sounds. Negative for: Decreased Breath Sounds, Accessory Muscle Use, Crackles, Rales, Rhonchi, Stridor, Wheezing , Respiratory Distress Pulses-Dorsalis Pedis (L): 2+ Pulses-Dorsalis Pedis (R): 2+ Pulses-Post. Tibialis (L): 2+ Pulses-Post. Tibialis (R): 2+ Gastrointestinal/Abdominal: Positive for: Normal Exam, Soft. Negative for: Tenderness Back: Positive for: Normal Inspection. Negative for: L CVA Tenderness, R CVA Tenderness, Vertebral Tenderness, Decreased ROM, Muscle Spasm Extremity: Positive for: Normal ROM. Negative for: Tenderness, Pedal Edema, Calf Tenderness, Deformity, Swelling Neurologic/Psych: Positive for: Alert, severity of illness coordinator II-XII, Oriented, Motor/Sensory Deficits (nml sensation to sharp. reduced to light touch bl, neg babinski nml strength), Gait (steady). Negative for: Aphasia, Facial Droop - Laboratory Results Result Diagrams: 02/28/17 13:00 02/28/17 12:48 - ECG O2 Sat by Pulse Oximetry: 99 Pulse Ox Interpretation: Normal - Progress ED Course And Treament: advise f/u with pmd or medical clinic pt now ambulating freely. Re-evaluation Time: 13:21 Condition: Improved Disposition - Clinical Impression Clinical Impression: Neuropathy - Patient ED Disposition Is Patient to be Admitted: No Counseled Patient/Family Regarding: Studies Performed, Diagnosis, Need For Followup - Disposition Referrals: [facility] [Outside] (2 to 3 days) Disposition: Routine/Home Disposition Time: 13:22 Condition: GOOD Instructions: Peripheral Neuropathy (ED)
[2017-02-28 13:05] LABS: HEMATOCRIT 35.9 % (34.0-47.0); MEAN CELL VOLUME 76.4 fl (81.0-99.0); MEAN CORPUSCULAR HEMOGLOBIN 24.9 pg (27.0-31.0); MEAN CORPUSCULAR HGB CONC 32.6 g/dL (33.0-37.0); RED CELL DISTRIBUTION WIDTH 16.6 % (11.5-14.5); WHITE BLOOD COUNT 5.8 K/uL (4.8-10.8)
[2017-02-28 13:09] LABS: BLOOD UREA NITROGEN 12 mg/dl (7-17); CALCIUM 8.8 mg/dL (8.4-10.2); CARBON DIOXIDE 24 mmol/L (22-30); CHLORIDE 107 mmol/L (98-107); GFR AFRICAN-AMERICAN > 60; GLUCOSE,RANDOM 75 mg/dL (65-105); POTASSIUM 3.8 MMOL/L (3.6-5.0); SODIUM 140 mmol/l (132-148)
== END 2017-02-28 14:44 | disposition home or self-care (01) ==
LOC: H.ER 11:31
DX: G90.09 Other idiopathic peripheral autonomic neuropathy (principal); F20.9 Schizophrenia, unspecified; F31.9 Bipolar disorder, unspecified; F41.9 Anxiety disorder, unspecified; G62.9 Polyneuropathy, unspecified; J45.909 Unspecified asthma, uncomplicated; Z79.82 Long term (current) use of aspirin

== ENCOUNTER 2017-03-13 07:06 | Emergency (ER) | payer MEDICAID ==
[2017-03-13 07:06] VITALS: BMI 28.9
[2017-03-13 07:36] VITALS: BP 106/72; PULSE 83; RESP 15; TEMP 97; O2SAT 97
--- NOTE | 2017-03-13 08:01 | ED PDOC ---
HPI: CCC, URI, Sore Throat Time Seen by Provider: 03/13/17 07:38 Chief Complaint (Nursing): ENT Problem Chief Complaint (Provider): ENT problem History Per: Patient History/Exam Limitations: no limitations Have you had recent travel within the past 21 days to any of the following countries: [place], [place], [place] or [place]?: No Onset/Duration Of Symptoms: Days (x 1) Associated Symptoms: Cough, Sputum, Sinus Drainage, Nasal Congestion. denies: Fever, Chills, Sore Throat Additional Complaint(s): Agata Badillo is a 57 year old non-domiciled female, with a previous medical history of stroke, heart murmur and pneumonia, who presents to the ED with complaints of sinus pain associated with cough, white sputum production and a postnasal drip ongoing for one day. Patient denies any fevers, chills or rhinorrhea. She states symptoms are similar to previous sinusitis in the past. Patient reports to taking aspirin daily as per a doctor in [place] secondary to her stroke history. PMD: none provided Past Medical History Reviewed: Historical Data, Nursing Documentation, Vital Signs Vital Signs: Last Vital Signs Temp 97 F L 03/13/17 07:30 Pulse 83 03/13/17 07:30 Resp 15 03/13/17 07:30 BP 106/72 03/13/17 07:30 Pulse Ox 97 03/13/17 08:10 - Medical History PMH: Anxiety, Arthritis, Asthma, Bipolar Disorder, Depression, Pneumonia, Schizophrenia Denies: Diabetes, Chronic Kidney Disease Other PMH: stroke - Surgical History Surgical History: Back Surgery - Family History Family History: States: Unknown Family Hx - Immunization History Hx Tetanus Toxoid Vaccination: No Hx Influenza Vaccination: Yes Hx Pneumococcal Vaccination: Yes - Home Medications Home Medications: Ambulatory Orders Medication Instructions Recorded Albuterol HFA [Ventolin HFA 90 2 puff INH Q4 PRN 08/02/16 mcg/actuation (8 g)] Aspirin [Aspirin Chewable] 81 mg PO DAILY 08/02/16 Naproxen [Naprosyn Tab] 1 tab PO DAILY 08/02/16 Pantoprazole [Protonix EC Tab] 20 mg PO DAILY 08/02/16 clonazePAM [Klonopin] 1 tab PO DAILY 08/02/16 Fluticasone Nasal [Flonase] 1 spray NS DAILY #1 bottle 10/28/16 Ibuprofen [Motrin] 400 mg PO Q6 #30 tab 10/31/16 predniSONE [predniSONE Tab] 40 mg PO DAILY 3 Days 11/20/16 Albuterol 0.083% [Albuterol 0.083% 2.5 mg IH Q4 PRN #20 neb 11/28/16 Inhal Sandra (2.5 mg/3 ml) UD] Naproxen [Naprosyn] 500 mg PO BID PRN #14 tablet 11/28/16 Dicyclomine [Bentyl] 20 mg PO Q12 PRN #20 tab 12/19/16 Cyclobenzaprine [Cyclobenzaprine 10 mg PO Q8 PRN #10 tab 01/08/17 HCl] FLUoxetine [Prozac] 10 mg PO DAILY 01/24/17 Guaifenesin/Pseudoephedrne HCl 1 ter PO Q12H PRN #10 ter 03/13/17 [Mucinex D 600 mg-60 mg] - Allergies Allergies/Adverse Reactions: Allergies Allergy/AdvReac Type Severity Reaction Status Date / Time No Known Allergies Allergy Verified 02/28/17 11:36 Review of Systems ROS Statement: Except As Marked, All Systems Reviewed And Found Negative Constitutional: Negative for: Fever, Chills ENT: Positive for: Nose Discharge, Other (sinus pain ) Respiratory: Positive for: Cough, Sputum (white) Physical Exam - Reviewed Nursing Documentation Reviewed: Yes Vital Signs Reviewed: Yes - Physical Exam Appears: Positive for: Well, Non-toxic, No Acute Distress Head Exam: Positive for: ATRAUMATIC, NORMAL INSPECTION, NORMOCEPHALIC Skin: Positive for: Normal Color, Warm, Dry Eye Exam: Positive for: Normal appearance ENT: Positive for: Sinus Pain/Drainage (maxillary sinus bilaterally ). Negative for: Pharyngeal Erythema, Tonsillar Exudate Neck: Positive for: Normal, Painless ROM Cardiovascular/Chest: Positive for: Regular Rate, Rhythm. Negative for: Murmur (normal S1 and S2) Respiratory: Positive for: Normal Breath Sounds. Negative for: Crackles, Rales , Rhonchi, Wheezing, Respiratory Distress Gastrointestinal/Abdominal: Positive for: Normal Exam, Bowel Sounds, Soft. Negative for: Tenderness Back: Positive for: Normal Inspection Extremity: Positive for: Normal ROM. Negative for: Tenderness, Pedal Edema Neurologic/Psych: Positive for: Alert, Oriented - ECG O2 Sat by Pulse Oximetry: 97 (RA) Pulse Ox Interpretation: Normal Medical Decision Making Medical Decision Making: Initial Impression: URI Initial plan: * physical exam * disposition Upon provider evaluation patient is medically stable, and requires no further treatment in the ED at this time. Patient will be discharged with Rx. Counseling was provided and all questions were answered regarding diagnosis and need for follow up. There is agreement to discharge plan. Return if symptoms persist or worsen. Scribe Attestation: Documented by Antoinette Neely, acting as a scribe for Adriana Hodge MD Provider Scribe Attestation: All medical record entries made by the Scribe were at my direction and personally dictated by me. I have reviewed the chart and agree that the record accurately reflects my personal performance of the history, physical exam, medical decision making, and the department course for this patient. I have also personally directed, reviewed, and agree with the discharge instructions and disposition. Disposition - Clinical Impression Clinical Impression: URI (upper respiratory infection) - Patient ED Disposition Is Patient to be Admitted: No Doctor Will See Patient In The: Office Counseled Patient/Family Regarding: Diagnosis, Need For Followup, Rx Given - Disposition Referrals: [facility] [Outside] [facility] [Outside] Disposition: Routine/Home Disposition Time: 08:00 Condition: STABLE Prescriptions: Guaifenesin/Pseudoephedrne HCl [Mucinex D 600 mg-60 mg] 1 ter PO Q12H PRN #10 ter PRN Reason: cough/congestion Instructions: Upper Respiratory Infection (ED) Forms: [employer] (Citizen Of [place]) - POA Present On Arrival: None
== END 2017-03-13 08:20 | disposition home or self-care (01) ==
LOC: H.ER 07:06
DX: J06.9 Acute upper respiratory infection, unspecified (principal); F20.9 Schizophrenia, unspecified; F31.9 Bipolar disorder, unspecified; F41.9 Anxiety disorder, unspecified; Z79.82 Long term (current) use of aspirin; Z86.73 Personal history of transient ischemic attack (TIA), and cerebral infarction without residual deficits

== ENCOUNTER 2017-03-18 11:35 | Emergency (ER) | payer MEDICAID ==
[2017-03-18 11:36] VITALS: BMI 28.9
[2017-03-18 11:43] VITALS: TEMP 98
--- NOTE | 2017-03-18 12:24 | ED PDOC ---
HPI: Headache Time Seen by Provider: 03/18/17 11:50 Chief Complaint (Nursing): Headache Chief Complaint (Provider): Headache History Per: Patient History/Exam Limitations: no limitations Onset/Duration Of Symptoms: Days (x2) Current Symptoms Are (Timing): Still Present Additional Complaint(s): Agata Badillo is a 57 year old female that presents to the ED with a chief complaint of a headache in her left pentecostalism area that she has been experiencing for the past two days. Patient states that she did not fall, and denies any fever, vomiting, diarrhea, abdominal pain, or chest pain. She states that she has not taken any medication for her headache. Of Note: Patient states that she has an adverse reaction to acetaminophen, but can take ibuprofen. Past Medical History Reviewed: Historical Data, Nursing Documentation, Vital Signs Vital Signs: Last Vital Signs Temp 98 F 03/18/17 11:41 Pulse 78 03/18/17 11:41 Resp 20 03/18/17 11:41 BP 107/80 03/18/17 11:41 Pulse Ox 98 03/18/17 11:41 - Medical History PMH: Anxiety, Arthritis, Asthma, Bipolar Disorder, Depression, Pneumonia, Schizophrenia Denies: Diabetes, Chronic Kidney Disease Other PMH: heart murmur - Surgical History Surgical History: Back Surgery - Family History Family History: States: Unknown Family Hx - Social History Current smoker - smoking cessation education provided: No Alcohol: None Drugs: Denies - Immunization History Hx Tetanus Toxoid Vaccination: No Hx Influenza Vaccination: Yes Hx Pneumococcal Vaccination: Yes - Home Medications Home Medications: Ambulatory Orders Medication Instructions Recorded Albuterol HFA [Ventolin HFA 90 2 puff INH Q4 PRN 08/02/16 mcg/actuation (8 g)] Aspirin [Aspirin Chewable] 81 mg PO DAILY 08/02/16 Naproxen [Naprosyn Tab] 1 tab PO DAILY 08/02/16 Pantoprazole [Protonix EC Tab] 20 mg PO DAILY 08/02/16 clonazePAM [Klonopin] 1 tab PO DAILY 08/02/16 Fluticasone Nasal [Flonase] 1 spray NS DAILY #1 bottle 10/28/16 Ibuprofen [Motrin] 400 mg PO Q6 #30 tab 10/31/16 predniSONE [predniSONE Tab] 40 mg PO DAILY 3 Days 11/20/16 Albuterol 0.083% [Albuterol 0.083% 2.5 mg IH Q4 PRN #20 neb 11/28/16 Inhal Sandra (2.5 mg/3 ml) UD] Naproxen [Naprosyn] 500 mg PO BID PRN #14 tablet 11/28/16 Dicyclomine [Bentyl] 20 mg PO Q12 PRN #20 tab 12/19/16 Cyclobenzaprine [Cyclobenzaprine 10 mg PO Q8 PRN #10 tab 01/08/17 HCl] FLUoxetine [Prozac] 10 mg PO DAILY 01/24/17 Guaifenesin/Pseudoephedrne HCl 1 ter PO Q12H PRN #10 ter 03/13/17 [Mucinex D 600 mg-60 mg] - Allergies Allergies/Adverse Reactions: Allergies Allergy/AdvReac Type Severity Reaction Status Date / Time No Known Allergies Allergy Verified 03/18/17 11:41 Review of Systems Constitutional: Negative for: Fever Cardiovascular: Negative for: Chest Pain Gastrointestinal: Negative for: Vomiting, Abdominal Pain, Diarrhea Neurological: Positive for: Headache (left-sided, pentecostalism area) Physical Exam - Reviewed Nursing Documentation Reviewed: Yes Vital Signs Reviewed: Yes - Physical Exam Appears: Positive for: Non-toxic, No Acute Distress Head Exam: Positive for: ATRAUMATIC, NORMOCEPHALIC Skin: Positive for: Normal Color, Warm Eye Exam: Positive for: Normal appearance, EOMI, PERRL Cardiovascular/Chest: Positive for: Regular Rate, Rhythm. Negative for: Murmur Respiratory: Positive for: Normal Breath Sounds. Negative for: Wheezing Gastrointestinal/Abdominal: Positive for: Normal Exam Extremity: Positive for: Normal ROM Neurologic/Psych: Positive for: Alert, clock and watch hands dipper II-XII, Oriented. Negative for: Motor/Sensory Deficits, Aphasia, Facial Droop - Laboratory Results Result Diagrams: 03/18/17 13:40 03/18/17 13:40 - ECG O2 Sat by Pulse Oximetry: 98 (RA) Pulse Ox Interpretation: Normal Medical Decision Making Medical Decision Making: Impression: Headache Plan: * CT Head w/o contrast * CMP * CBC * Reevaluation 14:25 CT Head w/o contrast FINDINGS: HEMORRHAGE: No intracranial hemorrhage. BRAIN: No mass effect or edema. No atrophy or chronic microvascular ischemic changes. VENTRICLES: Unremarkable. No hydrocephalus. CALVARIUM: Unremarkable. PARANASAL SINUSES: Minimal chronic ethmoid sinusitis. MASTOID AIR CELLS: Unremarkable as visualized. No inflammatory changes. OTHER FINDINGS: None. IMPRESSION: No intracranial mass, hemorrhage or evidence of acute infarct. Minimal chronic ethmoid sinusitis. Otherwise unremarkable examination. .... pt noticed to be sleeping throughout ER stay. in no distress. Labs are normal. Patient is feeling better and requires no further treatment in ED. Patient advised to follow up with PMD in the next 1-2 days, and is stable for discharge home. Clinical Impression: Headache Scribe Attestation: Documented by Ruth Ann Zabala, acting as a scribe for Yina Pretty MD. Provider Scribe Attestation: All medical record entries made by the Scribe were at my direction and personally dictated by me. I have reviewed the chart and agree that the record accurately reflects my personal performance of the history, physical exam, medical decision making, and the department course for this patient. I have also personally directed, reviewed, and agree with the discharge instructions and disposition. Disposition - Clinical Impression Clinical Impression: Headache - Patient ED Disposition Is Patient to be Admitted: No Counseled Patient/Family Regarding: Studies Performed, Diagnosis, Need For Followup - Disposition Referrals: [facility] [Outside] [facility] [Outside] Disposition: Routine/Home Disposition Time: 13:25 Condition: IMPROVED Additional Instructions: follow up with your primary doctor in 1-2 days return to the ED with any worsening or concerning symptoms. Instructions: General Headache (ED)
--- NOTE | 2017-03-18 13:51 | CT ---
PROCEDURE: CT HEAD WITHOUT CONTRAST. HISTORY: headache COMPARISON: None available. TECHNIQUE: Axial computed tomography images were obtained through the head/brain without intravenous contrast. Radiation dose: Total exam DLP = 730.87 mGy-cm. This CT exam was performed using one or more of the following dose reduction techniques: Automated exposure control, adjustment of the mA and/or kV according to patient size, and/or use of iterative reconstruction technique. FINDINGS: HEMORRHAGE: No intracranial hemorrhage. BRAIN: No mass effect or edema. No atrophy or chronic microvascular ischemic changes. VENTRICLES: Unremarkable. No hydrocephalus. CALVARIUM: Unremarkable. PARANASAL SINUSES: Minimal chronic ethmoid sinusitis. MASTOID AIR CELLS: Unremarkable as visualized. No inflammatory changes. OTHER FINDINGS: None. IMPRESSION: No intracranial mass, hemorrhage or evidence of acute infarct. Minimal chronic ethmoid sinusitis. Otherwise unremarkable examination.
[2017-03-18 14:01] LABS: BASO % 0.7 % (0.0-2.0); EOS # 0.2 K/uL (0.0-0.7); HEMOGLOBIN 11.8 g/dL (12.0-16.0); LYMPH # 2.2 K/uL (1.0-4.3); LYMPH % 30.8 % (20.0-40.0); MEAN CELL VOLUME 76.4 fl (81.0-99.0); MEAN CORPUSCULAR HGB CONC 32.8 g/dL (33.0-37.0); MEAN PLATELET VOLUME 7.5 fl (7.2-11.7); MONO # 0.5 K/uL (0.0-0.8); MONO % 7.4 % (0.0-10.0); NEUT # 4.1 K/uL (1.8-7.0); NEUT % 58.1 % (50.0-75.0); RBC 4.73 Mil/uL (3.80-5.20); RED CELL DISTRIBUTION WIDTH 16.1 % (11.5-14.5)
[2017-03-18 14:10] LABS: ALB/GLOB RATIO 1.1 (1.0-2.1); ALT/SGPT 31 U/L (9-52); AST/SGOT 33 U/L (14-36); BLOOD UREA NITROGEN 14 mg/dl (7-17); CALCIUM 8.9 mg/dL (8.4-10.2); GFR AFRICAN-AMERICAN > 60; GFR NON-AFRICAN AMERICAN > 60
[2017-03-18 15:28] VITALS: BP 132/76; PULSE 76; RESP 18
[2017-03-19 23:32] VITALS: O2SAT 98
== END 2017-03-18 15:28 | disposition home or self-care (01) ==
LOC: H.ER 11:35
DX: R51 Headache (principal); F20.9 Schizophrenia, unspecified; F31.9 Bipolar disorder, unspecified; F41.9 Anxiety disorder, unspecified; Z79.82 Long term (current) use of aspirin

== ENCOUNTER 2017-05-21 08:52 | Emergency (ER) | payer MEDICAID ==
[2017-05-21 08:52] VITALS: BMI 28.9
[2017-05-21 08:56] VITALS: BP 105/59; PULSE 62; RESP 16; TEMP 96.5
[2017-05-21 08:59] VITALS: O2SAT 98
--- NOTE | 2017-05-21 09:21 | ED PDOC ---
Upper Extremity Pain/Injury Time Seen by Provider: 05/21/17 09:15 Chief Complaint (Nursing): Upper Extremity Problem/Injury History Per: Patient Onset/Duration Of Symptoms: Days (1) Current Symptoms Are (Timing): Still Present Quality: Aching Severity: Mild Pain Scale Rating Of: 2 Exacerbating Factor(s): Movement Additional Complaint(s): Tripped and fell while walking with injury to left shoulder. Pain worse on raising arm. denies haed or neck injury, Past Medical History Vital Signs: Last Vital Signs Temp 96.5 F L 05/21/17 08:55 Pulse 62 05/21/17 08:55 Resp 16 05/21/17 08:55 BP 105/59 L 05/21/17 08:55 Pulse Ox 98 05/21/17 08:57 - Medical History PMH: Anxiety, Arthritis, Asthma, Bipolar Disorder, CVA, Depression, Pneumonia, Schizophrenia Denies: Diabetes, Chronic Kidney Disease - Surgical History Surgical History: Back Surgery - Family History Family History: States: Unknown Family Hx - Immunization History Hx Tetanus Toxoid Vaccination: No Hx Influenza Vaccination: Yes Hx Pneumococcal Vaccination: Yes - Home Medications Home Medications: Ambulatory Orders Medication Instructions Recorded Albuterol HFA [Ventolin HFA 90 2 puff INH Q4 PRN 08/02/16 mcg/actuation (8 g)] Aspirin [Aspirin Chewable] 81 mg PO DAILY 08/02/16 Naproxen [Naprosyn Tab] 1 tab PO DAILY 08/02/16 Pantoprazole [Protonix EC Tab] 20 mg PO DAILY 08/02/16 clonazePAM [Klonopin] 1 tab PO DAILY 08/02/16 Fluticasone Nasal [Flonase] 1 spray NS DAILY #1 bottle 10/28/16 Ibuprofen [Motrin] 400 mg PO Q6 #30 tab 10/31/16 predniSONE [predniSONE Tab] 40 mg PO DAILY 3 Days 11/20/16 Albuterol 0.083% [Albuterol 0.083% 2.5 mg IH Q4 PRN #20 neb 11/28/16 Inhal Sandra (2.5 mg/3 ml) UD] Naproxen [Naprosyn] 500 mg PO BID PRN #14 tablet 11/28/16 Dicyclomine [Bentyl] 20 mg PO Q12 PRN #20 tab 12/19/16 Cyclobenzaprine [Cyclobenzaprine 10 mg PO Q8 PRN #10 tab 01/08/17 HCl] FLUoxetine [Prozac] 10 mg PO DAILY 01/24/17 Guaifenesin/Pseudoephedrne HCl 1 ter PO Q12H PRN #10 ter 03/13/17 [Mucinex D 600 mg-60 mg] Naproxen [Naprosyn] 500 mg PO Q12H #20 tab 05/21/17 - Allergies Allergies/Adverse Reactions: Allergies Allergy/AdvReac Type Severity Reaction Status Date / Time No Known Allergies Allergy Verified 03/18/17 11:41 Review of Systems Cardiovascular: Negative for: Chest Pain Musculoskeletal: Positive for: Shoulder Pain Neurological: Negative for: Weakness, Numbness, Headache, Dizziness Physical Exam - Physical Exam Appears: Positive for: Non-toxic, No Acute Distress Skin: Positive for: Normal Color, Warm, DRY Neck: Positive for: Normal, Painless ROM, Supple Pulses-Radial (L): 2+ Pulses-Radial (R): 2+ Back: Positive for: Normal Inspection, Vertebral Tenderness Extremity: Positive for: Other (Left shoulder ROM limited by pain). Negative for: Tenderness, Deformity, Swelling Neurologic/Psych: Positive for: Alert, Oriented. Negative for: Motor/Sensory Deficits - ECG O2 Sat by Pulse Oximetry: 98 Disposition - Clinical Impression Clinical Impression: Shoulder sprain - Patient ED Disposition Is Patient to be Admitted: No Counseled Patient/Family Regarding: Studies Performed, Diagnosis, Need For Followup, Rx Given - Disposition Referrals: [facility] [Outside] Disposition: Routine/Home Disposition Time: 09:50 Condition: FAIR Prescriptions: Naproxen [Naprosyn] 500 mg PO Q12H #20 tab Instructions: Shoulder Sprain (ED) Forms: [employer] (Sinhala)
--- NOTE | 2017-05-21 12:36 | RAD ---
PROCEDURE: Radiographs of the Left Shoulder HISTORY: trauma COMPARISON: No prior. FINDINGS: BONES: Normal. No fracture. JOINTS: Normal. Glenohumeral and acromioclavicular joints preserved. No osteoarthritis. SOFT TISSUES: Normal. OTHER FINDINGS: None. IMPRESSION: Normal radiographs of the left shoulder.
== END 2017-05-21 10:57 | disposition home or self-care (01) ==
LOC: H.ER 08:52
DX: S49.92XA Unspecified injury of left shoulder and upper arm, initial encounter (principal); W19.XXXA Unspecified fall, initial encounter; Y92.89 Other specified places as the place of occurrence of the external cause; F20.9 Schizophrenia, unspecified; F31.9 Bipolar disorder, unspecified; F41.9 Anxiety disorder, unspecified; J45.909 Unspecified asthma, uncomplicated; Z79.82 Long term (current) use of aspirin; Z86.73 Personal history of transient ischemic attack (TIA), and cerebral infarction without residual deficits

== ENCOUNTER 2017-06-05 09:16 | Emergency (ER) | payer MEDICAID ==
[2017-06-05 09:25] VITALS: BP 125/65; PULSE 66; RESP 20; TEMP 97; O2SAT 96
[2017-06-05 09:26] VITALS: BMI 22.4
--- NOTE | 2017-06-05 10:09 | ED PDOC ---
HPI: General Adult Time Seen by Provider: 06/05/17 09:28 Chief Complaint (Nursing): Abnormal Skin Integrity Chief Complaint (Provider): Abnormal Skin Integrity History Per: Patient History/Exam Limitations: no limitations Current Symptoms Are (Timing): Still Present Additional Complaint(s): 57 y/o female presents to the emergency department with calluses to both palms. Patient pulls two big suitcases causing her complaint because she is undomiciled. Denies any further medical complaints. Past Medical History Reviewed: Historical Data, Nursing Documentation, Vital Signs Vital Signs: Last Vital Signs Temp 97 F L 06/05/17 09:25 Pulse 66 06/05/17 09:25 Resp 20 06/05/17 09:25 BP 125/65 06/05/17 09:25 Pulse Ox 96 06/05/17 10:10 - Medical History PMH: Anxiety, Arthritis, Asthma, Bipolar Disorder, CVA, Depression, Pneumonia, Schizophrenia Denies: Diabetes, Chronic Kidney Disease - Surgical History Surgical History: Back Surgery - Family History Family History: States: Unknown Family Hx - Social History Current smoker - smoking cessation education provided: No Alcohol: None Drugs: Denies - Immunization History Hx Tetanus Toxoid Vaccination: No Hx Influenza Vaccination: Yes Hx Pneumococcal Vaccination: Yes - Home Medications Home Medications: Ambulatory Orders Medication Instructions Recorded Albuterol HFA [Ventolin HFA 90 2 puff INH Q4 PRN 08/02/16 mcg/actuation (8 g)] Aspirin [Aspirin Chewable] 81 mg PO DAILY 08/02/16 Naproxen [Naprosyn Tab] 1 tab PO DAILY 08/02/16 Pantoprazole [Protonix EC Tab] 20 mg PO DAILY 08/02/16 clonazePAM [Klonopin] 1 tab PO DAILY 08/02/16 Fluticasone Nasal [Flonase] 1 spray NS DAILY #1 bottle 10/28/16 Ibuprofen [Motrin] 400 mg PO Q6 #30 tab 10/31/16 predniSONE [predniSONE Tab] 40 mg PO DAILY 3 Days tab 11/20/16 Albuterol 0.083% [Albuterol 0.083% 2.5 mg IH Q4 PRN #20 neb 11/28/16 Inhal Sandra (2.5 mg/3 ml) UD] Naproxen [Naprosyn] 500 mg PO BID PRN #14 tablet 11/28/16 Dicyclomine [Bentyl] 20 mg PO Q12 PRN #20 tab 12/19/16 Cyclobenzaprine [Cyclobenzaprine 10 mg PO Q8 PRN #10 tab 01/08/17 HCl] FLUoxetine [Prozac] 10 mg PO DAILY 01/24/17 Guaifenesin/Pseudoephedrne HCl 1 ter PO Q12H PRN #10 ter 03/13/17 [Mucinex D 600 mg-60 mg] Naproxen [Naprosyn] 500 mg PO Q12H #20 tab 05/21/17 - Allergies Allergies/Adverse Reactions: Allergies Allergy/AdvReac Type Severity Reaction Status Date / Time No Known Allergies Allergy Verified 03/18/17 11:41 Review of Systems ROS Statement: Except As Marked, All Systems Reviewed And Found Negative Musculoskeletal: Positive for: Other (Calluses on both palms) Physical Exam - Reviewed Nursing Documentation Reviewed: Yes Vital Signs Reviewed: Yes - Physical Exam Appears: Positive for: Non-toxic, No Acute Distress Head Exam: Positive for: ATRAUMATIC, NORMAL INSPECTION, NORMOCEPHALIC Skin: Positive for: Normal Color, Warm, Dry Neck: Positive for: Normal, Supple Cardiovascular/Chest: Positive for: Regular Rate, Rhythm. Negative for: Murmur Respiratory: Positive for: Normal Breath Sounds. Negative for: Accessory Muscle Use, Respiratory Distress Extremity: Positive for: Other (Calluses on palms b/l). Negative for: Tenderness (No fluctuance, erythema, edema, or tenderness) Neurologic/Psych: Positive for: Alert, Oriented (x3) - ECG O2 Sat by Pulse Oximetry: 96 (RA) Pulse Ox Interpretation: Normal Medical Decision Making Medical Decision Making: Time: 10:00 Initial Impression: Calluses to the palms Initial Plan: Scribe Attestation: Documented by Johana Velazquez, acting as a scribe for Antoinette Do MD. Provider Scribe Attestation: All medical record entries made by the Scribe were at my direction and personally dictated by me. I have reviewed the chart and agree that the record accurately reflects my personal performance of the history, physical exam, medical decision making, and the department course for this patient. I have also personally directed, reviewed, and agree with the discharge instructions and disposition. Disposition - Clinical Impression Clinical Impression: Callus - Disposition Referrals: [facility] [Outside] Disposition: Routine/Home Disposition Time: 09:59 Condition: STABLE Additional Instructions: APPLY AQUAPHOR NEEDED. Instructions: Itchy Skin (ED) Forms: [employer] ([place])
== END 2017-06-05 10:15 | disposition home or self-care (01) ==
LOC: H.ER 09:16
DX: L84 Corns and callosities (principal)

== ENCOUNTER 2017-06-23 08:07 | Emergency (ER) | payer MEDICAID ==
[2017-06-23 08:07] VITALS: BMI 22.4
[2017-06-23 08:22] VITALS: O2SAT 100
--- NOTE | 2017-06-23 08:33 | ED PDOC ---
HPI: Chest Pain Time Seen by Provider: 06/23/17 08:19 Chief Complaint (Nursing): Chest Pain Chief Complaint (Provider): Chest Pain History Per: Patient (Chest pain worse on inspiration) History/Exam Limitations: no limitations Onset/Duration Of Symptoms: Hrs Current Symptoms Are (Timing): Still Present Quality: Sharp Associated Symptoms: denies: Nausea, Dyspnea, Diaphoresis, Syncope Modifying Factors: None Exacerbating Factors: None Alleviating Factors: None Additional History Per: Patient Additional Complaint(s): Patient is a 57 year old female, with Past medical history of CVA, presents to Emergency Department for evaluation of sharp sub-sternal chest pain since this morning. Patient denies any radiation of pain, or associated shortness of breath. Denies cough, sputum, or fever. Past Medical History Reviewed: Historical Data, Nursing Documentation, Vital Signs Vital Signs: Last Vital Signs Temp 97.8 F 06/23/17 08:25 Pulse 62 06/23/17 08:57 Resp 12 06/23/17 08:25 BP 111/75 06/23/17 08:25 Pulse Ox 100 06/23/17 08:57 - Medical History PMH: Anxiety, Arthritis, Asthma, Bipolar Disorder, CVA, Depression, Pneumonia, Schizophrenia Denies: Diabetes, Chronic Kidney Disease - Surgical History Surgical History: Back Surgery - Family History Family History: States: Unknown Family Hx - Immunization History Hx Tetanus Toxoid Vaccination: No Hx Influenza Vaccination: Yes Hx Pneumococcal Vaccination: Yes - Home Medications Home Medications: Ambulatory Orders Medication Instructions Recorded Albuterol HFA [Ventolin HFA 90 2 puff INH Q4 PRN 08/02/16 mcg/actuation (8 g)] Aspirin [Aspirin Chewable] 81 mg PO DAILY 08/02/16 Naproxen [Naprosyn Tab] 1 tab PO DAILY 08/02/16 Pantoprazole [Protonix EC Tab] 20 mg PO DAILY 08/02/16 clonazePAM [Klonopin] 1 tab PO DAILY 08/02/16 Fluticasone Nasal [Flonase] 1 spray NS DAILY #1 bottle 10/28/16 Ibuprofen [Motrin] 400 mg PO Q6 #30 tab 10/31/16 predniSONE [predniSONE Tab] 40 mg PO DAILY 3 Days tab 11/20/16 Albuterol 0.083% [Albuterol 0.083% 2.5 mg IH Q4 PRN #20 neb 11/28/16 Inhal Sandra (2.5 mg/3 ml) UD] Naproxen [Naprosyn] 500 mg PO BID PRN #14 tablet 11/28/16 Dicyclomine [Bentyl] 20 mg PO Q12 PRN #20 tab 12/19/16 Cyclobenzaprine [Cyclobenzaprine 10 mg PO Q8 PRN #10 tab 01/08/17 HCl] FLUoxetine [Prozac] 10 mg PO DAILY 01/24/17 Guaifenesin/Pseudoephedrne HCl 1 ter PO Q12H PRN #10 ter 03/13/17 [Mucinex D 600 mg-60 mg] Naproxen [Naprosyn] 500 mg PO Q12H #20 tab 05/21/17 Naproxen [Naprosyn] 500 mg PO Q12H #20 tab 06/23/17 - Allergies Allergies/Adverse Reactions: Allergies Allergy/AdvReac Type Severity Reaction Status Date / Time No Known Allergies Allergy Verified 06/23/17 08:25 Review of Systems Constitutional: Negative for: Fever, Chills Cardiovascular: Positive for: Chest Pain. Negative for: Palpitations, Edema, Light Headedness Respiratory: Negative for: Cough, Shortness of Breath Neurological: Negative for: Headache, Dizziness Physical Exam - Reviewed Nursing Documentation Reviewed: Yes Vital Signs Reviewed: Yes - Physical Exam Appears: Positive for: Non-toxic, No Acute Distress Head Exam: Positive for: ATRAUMATIC, NORMOCEPHALIC Skin: Positive for: Normal Color, Warm, Dry Eye Exam: Positive for: EOMI, Normal appearance, PERRL Neck: Positive for: Normal, Supple Cardiovascular/Chest: Positive for: Regular Rate, Rhythm. Negative for: Chest Non Tender (Infrasternal chest wall tenderness.), Murmur Respiratory: Positive for: Normal Breath Sounds. Negative for: Respiratory Distress Gastrointestinal/Abdominal: Positive for: Soft. Negative for: Tenderness Extremity: Positive for: Normal ROM. Negative for: Tenderness, Pedal Edema, Swelling Neurologic/Psych: Positive for: Alert, Oriented, Other. Negative for: Motor/ Sensory Deficits - Laboratory Results Result Diagrams: 06/23/17 09:15 06/23/17 09:15 - ECG ECG: Positive for: Interpreted By Me, Viewed By Me ECG Rhythm: Positive for: Sinus Rhythm Interpretation Of ECG: No acute ST/T wave changes. Rate: 62 (bpm) O2 Sat by Pulse Oximetry: 100 (on RA) Pulse Ox Interpretation: Normal Medical Decision Making Medical Decision Making: Plan: EKG Chest x-ray CMP, CBC, Troponin Disposition - Clinical Impression Clinical Impression: Chest wall tenderness, Pleuritic chest pain - Patient ED Disposition Is Patient to be Admitted: No Counseled Patient/Family Regarding: Studies Performed, Diagnosis, Need For Followup, Rx Given - Disposition Referrals: [facility] [Outside] Disposition: Routine/Home Disposition Time: 10:06 Condition: FAIR Prescriptions: Naproxen [Naprosyn] 500 mg PO Q12H #20 tab Instructions: Costochondritis (ED), Pleurisy (ED) Forms: [employer] (Macanese) - PA / [employer] NOTCHER / Resident Statement MD/DO has reviewed & agrees with the documentation as recorded. (Fabien Lloyd All medical record entries made by the Scribe were at my direction and personally dictated by me. I have reviewed the chart and agree that the record accurately reflects my personal performance of the history, physical exam, medical decision making, and the department course for this patient. I have also personally directed, reviewed, and agree with the discharge instructions and disposition.)
[2017-06-23 08:57] VITALS: PULSE 62
[2017-06-23 09:20] LABS: BASO % 0.7 % (0.0-2.0); EOS # 0.2 K/uL (0.0-0.7); EOS % 3.4 % (0.0-4.0); HEMATOCRIT 34.4 % (34.0-47.0); LYMPH # 1.3 K/uL (1.0-4.3); LYMPH % 27.5 % (20.0-40.0); MEAN CELL VOLUME 77.8 fl (81.0-99.0); MEAN CORPUSCULAR HEMOGLOBIN 25.7 pg (27.0-31.0); MEAN PLATELET VOLUME 7.2 fl (7.2-11.7); MONO # 0.4 K/uL (0.0-0.8); MONO % 8.1 % (0.0-10.0); NEUT # 2.8 K/uL (1.8-7.0); NEUT % 60.3 % (50.0-75.0); RED CELL DISTRIBUTION WIDTH 15.1 % (11.5-14.5); WHITE BLOOD COUNT 4.7 K/uL (4.8-10.8)
[2017-06-23 09:41] LABS: ALB/GLOB RATIO 1.2 (1.0-2.1); ALKALINE PHOSPHATASE 107 U/L (38-126); ALT/SGPT 33 U/L (9-52); AST/SGOT 27 U/L (14-36); BILIRUBIN,TOTAL 0.3 mg/dl (0.2-1.3); BLOOD UREA NITROGEN 13 mg/dl (7-17); CALCIUM 9.2 mg/dL (8.4-10.2); CARBON DIOXIDE 28 mmol/L (22-30); CHLORIDE 106 mmol/L (98-107); GFR AFRICAN-AMERICAN > 60; GLUCOSE,RANDOM 74 mg/dL (65-105); POTASSIUM 3.4 MMOL/L (3.6-5.0); SODIUM 144 mmol/l (132-148); TOTAL PROTEIN 6.9 G/DL (6.3-8.2)
[2017-06-23 10:35] VITALS: BP 106/58; RESP 18; TEMP 98
--- NOTE | 2017-06-24 07:48 | CARD ---
APPROVED REPORT EKG Measurement Heart [id number] <Conclusion> Normal sinus rhythm Normal ECG
== END 2017-06-23 10:50 | disposition home or self-care (01) ==
LOC: H.ER 08:07
DX: R07.89 Other chest pain (principal); R09.1 Pleurisy; F20.9 Schizophrenia, unspecified; F31.9 Bipolar disorder, unspecified; F41.9 Anxiety disorder, unspecified; Z79.82 Long term (current) use of aspirin; Z86.73 Personal history of transient ischemic attack (TIA), and cerebral infarction without residual deficits

== ENCOUNTER 2017-07-18 08:36 | Emergency (ER) | payer MEDICAID ==
[2017-07-18 08:37] VITALS: BMI 22.4
[2017-07-18 08:45] VITALS: TEMP 97.8
--- NOTE | 2017-07-18 09:42 | ED PDOC ---
HPI: Chest Pain Time Seen by Provider: 07/18/17 09:09 Chief Complaint (Nursing): Chest Pain History Per: Patient History/Exam Limitations: no limitations Onset/Duration Of Symptoms: Days (1) Current Symptoms Are (Timing): Still Present Severity: Moderate Pain Scale Rating Of: 4 Quality: Dull Associated Symptoms: denies: Nausea, Dyspnea, Diaphoresis Modifying Factors: None Exacerbating Factors: Deep Breathing Alleviating Factors: None Additional History Per: Patient Additional Complaint(s): Pt co chest pain for 1 day. Non radiating and non exertional. She took ASA yesterday for pain. Pain is less today. No SOB, cough, leg swelling. Past Medical History Reviewed: Historical Data, Nursing Documentation, Vital Signs Vital Signs: Last Vital Signs Temp 97.8 F 07/18/17 08:44 Pulse 85 07/18/17 12:24 Resp 16 07/18/17 08:44 BP 116/82 07/18/17 08:44 Pulse Ox 98 07/18/17 12:24 - Medical History PMH: Anxiety, Arthritis, Asthma, Bipolar Disorder, CVA, Depression, Pneumonia, Schizophrenia Denies: Diabetes, Chronic Kidney Disease - Surgical History Surgical History: Back Surgery - Family History Family History: States: Unknown Family Hx - Living Arrangements Living Arrangements: Other (Homeless) - Immunization History Hx Tetanus Toxoid Vaccination: No Hx Influenza Vaccination: Yes Hx Pneumococcal Vaccination: Yes - Home Medications Home Medications: Ambulatory Orders Medication Instructions Recorded Albuterol HFA [Ventolin HFA 90 2 puff INH Q4 PRN 08/02/16 mcg/actuation (8 g)] Aspirin [Aspirin Chewable] 81 mg PO DAILY 08/02/16 Naproxen [Naprosyn Tab] 1 tab PO DAILY 08/02/16 Pantoprazole [Protonix EC Tab] 20 mg PO DAILY 08/02/16 clonazePAM [Klonopin] 1 tab PO DAILY 08/02/16 Fluticasone Nasal [Flonase] 1 spray NS DAILY #1 bottle 10/28/16 Ibuprofen [Motrin] 400 mg PO Q6 #30 tab 10/31/16 predniSONE [predniSONE Tab] 40 mg PO DAILY 3 Days tab 11/20/16 Albuterol 0.083% [Albuterol 0.083% 2.5 mg IH Q4 PRN #20 neb 11/28/16 Inhal Sandra (2.5 mg/3 ml) UD] Naproxen [Naprosyn] 500 mg PO BID PRN #14 tablet 11/28/16 Dicyclomine [Bentyl] 20 mg PO Q12 PRN #20 tab 12/19/16 Cyclobenzaprine [Cyclobenzaprine 10 mg PO Q8 PRN #10 tab 01/08/17 HCl] FLUoxetine [Prozac] 10 mg PO DAILY 01/24/17 Guaifenesin/Pseudoephedrne HCl 1 ter PO Q12H PRN #10 ter 03/13/17 [Mucinex D 600 mg-60 mg] Naproxen [Naprosyn] 500 mg PO Q12H #20 tab 05/21/17 Naproxen [Naprosyn] 500 mg PO Q12H #20 tab 06/23/17 - Allergies Allergies/Adverse Reactions: Allergies Allergy/AdvReac Type Severity Reaction Status Date / Time No Known Allergies Allergy Verified 06/23/17 08:25 SHERI Risk Score for UA/NSTEMI - SHERI Risk Score Age > 64: NO 3 or more CAD Risk Factors: NO Known CAD (Stenosis greater than 50%): NO Aspirin use in past 7 days: NO Severe Angina: NO EKG ST changes greater than 0.5mm: NO Positive Cardiac Marker: NO SHERI Score: 0 Risk %: 5% Wells Criteria for PE - Wells Criteria for Pulmonary Embolism Clinical Signs and Symptoms of DVT: No P.E is #1 Diagnosis, or Equally Likely: No Heart Rate >100: No Immobilization at least 3 days;Surgery previous 4 weeks: No Previous, objectively diagnosed PE or DVT: No Hemoptysis: No Malignancy w/treatment within 6 months, or palliative: No Total Score: 0 Review of Systems ROS Statement: Except As Marked, All Systems Reviewed And Found Negative Physical Exam - Reviewed Nursing Documentation Reviewed: Yes Vital Signs Reviewed: Yes - Physical Exam Appears: Positive for: Well, Non-toxic, No Acute Distress Head Exam: Positive for: ATRAUMATIC, NORMAL INSPECTION Skin: Positive for: Warm, Dry Eye Exam: Positive for: EOMI Neck: Positive for: Painless ROM, Supple Cardiovascular/Chest: Positive for: Regular Rate, Rhythm. Negative for: Tachycardia Respiratory: Positive for: Normal Breath Sounds. Negative for: Wheezing, Respiratory Distress Gastrointestinal/Abdominal: Positive for: Soft. Negative for: Tenderness Extremity: Positive for: Normal ROM Neurologic/Psych: Positive for: Alert, Oriented - Laboratory Results Result Diagrams: 07/18/17 09:50 07/18/17 09:50 - ECG ECG: Positive for: Interpreted By Me, Viewed By Me ECG Rhythm: Positive for: Normal QRS, Normal ST Segment, Sinus Rhythm. Negative for: ST/T Changes Rate: 85 O2 Sat by Pulse Oximetry: 98 - Radiology X-Ray: Interpreted by Me, Viewed By Me X-Ray Interpretation: No Acute Disease - Progress Re-evaluation Time: 14:05 Condition: Re-examined, Improved Medical Decision Making Medical Decision Making: Impression Chest pain Diff includes ACS, chest wall pain Plan EKG Labs CXR reassess Disposition - Clinical Impression Clinical Impression: Chest pain - Patient ED Disposition Is Patient to be Admitted: No Doctor Will See Patient In The: Office Counseled Patient/Family Regarding: Studies Performed, Diagnosis, Need For Followup - Disposition Referrals: [facility] [Outside] Disposition: Routine/Home Disposition Time: 14:05 Condition: GOOD Additional Instructions: Follow up with your PCP in 2-3 days. Instructions: Chest Pain (ED)
[2017-07-18 10:08] LABS: BASO % 0.5 % (0.0-2.0); EOS # 0.2 K/uL (0.0-0.7); EOS % 2.7 % (0.0-4.0); HEMATOCRIT 35.4 % (34.0-47.0); LYMPH # 1.8 K/uL (1.0-4.3); LYMPH % 28.8 % (20.0-40.0); MEAN CELL VOLUME 76.4 fl (81.0-99.0); MEAN CORPUSCULAR HEMOGLOBIN 25.2 pg (27.0-31.0); MEAN PLATELET VOLUME 7.2 fl (7.2-11.7); MONO # 0.5 K/uL (0.0-0.8); MONO % 8.6 % (0.0-10.0); NEUT # 3.6 K/uL (1.8-7.0); NEUT % 59.4 % (50.0-75.0); RED CELL DISTRIBUTION WIDTH 14.2 % (11.5-14.5); WHITE BLOOD COUNT 6.1 K/uL (4.8-10.8)
[2017-07-18 10:33] LABS: BLOOD UREA NITROGEN 15 mg/dl (7-17); CARBON DIOXIDE 25 mmol/L (22-30); CHLORIDE 107 mmol/L (98-107); GFR AFRICAN-AMERICAN > 60; GLUCOSE,RANDOM 92 mg/dL (65-105); POTASSIUM 3.7 MMOL/L (3.6-5.0); SODIUM 141 mmol/l (132-148)
--- NOTE | 2017-07-18 12:26 | RAD ---
PROCEDURE: CHEST RADIOGRAPH, 1 VIEW HISTORY: chest pain COMPARISON: Comparison chest 06/23/2017 FINDINGS: LUNGS: Clear. PLEURA: No pneumothorax or pleural fluid seen. CARDIOVASCULAR: Normal. OSSEOUS STRUCTURES: No significant abnormalities. VISUALIZED UPPER ABDOMEN: Normal. OTHER FINDINGS: None. IMPRESSION: No active disease.
[2017-07-18 15:10] VITALS: BP 116/67; PULSE 74; RESP 17; O2SAT 100
--- NOTE | 2017-07-19 21:17 | CARD ---
APPROVED REPORT EKG Measurement Heart [id number] MA [id number] <Conclusion> Normal sinus rhythm with sinus arrhythmia Normal ECG
== END 2017-07-18 15:04 | disposition home or self-care (01) ==
LOC: H.ER 08:36
DX: R07.89 Other chest pain (principal); J45.909 Unspecified asthma, uncomplicated; F20.9 Schizophrenia, unspecified; F31.9 Bipolar disorder, unspecified; F41.9 Anxiety disorder, unspecified; Z79.82 Long term (current) use of aspirin; Z86.73 Personal history of transient ischemic attack (TIA), and cerebral infarction without residual deficits

== ENCOUNTER 2017-07-19 11:10 | Emergency (ER) | payer MEDICAID ==
[2017-07-19 11:12] VITALS: BMI 26.6
[2017-07-19 11:13] VITALS: BP 134/74; PULSE 94; RESP 16; TEMP 97.7; O2SAT 100
--- NOTE | 2017-07-19 11:26 | ED PDOC ---
HPI: General Adult Time Seen by Provider: 07/19/17 11:19 Chief Complaint (Nursing): Back Pain Chief Complaint (Provider): Depressed History Per: Patient History/Exam Limitations: no limitations Onset/Duration Of Symptoms: Days (Today 1hr ago) Current Symptoms Are (Timing): Gone Now Additional Complaint(s): [place] depressed while on the streets. Currently not having those thoughts. Not suicidal or homicidal at anytime. No weakness. No abd pain, chest pain, back pain, dyspnea. No fever. No drugs or etoh. Here multiple times for multiple complaints. Past Medical History Reviewed: Nursing Documentation, Vital Signs Vital Signs: Last Vital Signs Temp 97.7 F 07/19/17 11:12 Pulse 94 H 07/19/17 11:12 Resp 16 07/19/17 11:12 BP 134/74 07/19/17 11:12 Pulse Ox 100 07/19/17 11:12 - Medical History PMH: Anxiety, Arthritis, Asthma, Bipolar Disorder, CVA, Depression, Pneumonia, Schizophrenia Denies: Diabetes, Chronic Kidney Disease - Surgical History Surgical History: Back Surgery - Family History Family History: States: Unknown Family Hx - Living Arrangements Living Arrangements: Other (homeless) - Social History Alcohol: None Drugs: Denies - Immunization History Hx Tetanus Toxoid Vaccination: No Hx Influenza Vaccination: Yes Hx Pneumococcal Vaccination: Yes - Home Medications Home Medications: Ambulatory Orders Medication Instructions Recorded Albuterol HFA [Ventolin HFA 90 2 puff INH Q4 PRN 08/02/16 mcg/actuation (8 g)] Aspirin [Aspirin Chewable] 81 mg PO DAILY 08/02/16 Naproxen [Naprosyn Tab] 1 tab PO DAILY 08/02/16 Pantoprazole [Protonix EC Tab] 20 mg PO DAILY 08/02/16 clonazePAM [Klonopin] 1 tab PO DAILY 08/02/16 Fluticasone Nasal [Flonase] 1 spray NS DAILY #1 bottle 10/28/16 Ibuprofen [Motrin] 400 mg PO Q6 #30 tab 10/31/16 predniSONE [predniSONE Tab] 40 mg PO DAILY 3 Days tab 11/20/16 Albuterol 0.083% [Albuterol 0.083% 2.5 mg IH Q4 PRN #20 neb 11/28/16 Inhal Sandra (2.5 mg/3 ml) UD] Naproxen [Naprosyn] 500 mg PO BID PRN #14 tablet 11/28/16 Dicyclomine [Bentyl] 20 mg PO Q12 PRN #20 tab 12/19/16 Cyclobenzaprine [Cyclobenzaprine 10 mg PO Q8 PRN #10 tab 01/08/17 HCl] FLUoxetine [Prozac] 10 mg PO DAILY 01/24/17 Guaifenesin/Pseudoephedrne HCl 1 ter PO Q12H PRN #10 ter 03/13/17 [Mucinex D 600 mg-60 mg] Naproxen [Naprosyn] 500 mg PO Q12H #20 tab 05/21/17 Naproxen [Naprosyn] 500 mg PO Q12H #20 tab 06/23/17 - Allergies Allergies/Adverse Reactions: Allergies Allergy/AdvReac Type Severity Reaction Status Date / Time No Known Allergies Allergy Verified 06/23/17 08:25 Review of Systems ROS Statement: Except As Marked, All Systems Reviewed And Found Negative Psych: Positive for: Depression. Negative for: Suicidal ideation Physical Exam - Reviewed Nursing Documentation Reviewed: Yes Vital Signs Reviewed: Yes - Physical Exam Appears: Positive for: Non-toxic, No Acute Distress Head Exam: Positive for: ATRAUMATIC, NORMAL INSPECTION, NORMOCEPHALIC Skin: Positive for: Normal Color, Warm, DRY Eye Exam: Positive for: EOMI, Normal appearance, PERRL ENT: Positive for: Normal ENT Inspection Neck: Positive for: Normal, Painless ROM Cardiovascular/Chest: Positive for: Regular Rate, Rhythm Respiratory: Positive for: CNT, Normal Breath Sounds Gastrointestinal/Abdominal: Positive for: Normal Exam, Bowel Sounds, Soft. Negative for: Tenderness Back: Positive for: Normal Inspection. Negative for: L CVA Tenderness, R CVA Tenderness Extremity: Positive for: Normal ROM. Negative for: Tenderness, Pedal Edema Neurologic/Psych: Positive for: Alert, Oriented - ECG O2 Sat by Pulse Oximetry: 100 - Progress ED Course And Treament: 1126: Stable. AAOx3. Pain free. Homeless. Here multiple times for similar. Fu with pcp. No suicidal or homicidal at thoughts at this time. Disposition - Clinical Impression Clinical Impression: Homeless - Patient ED Disposition Is Patient to be Admitted: No Counseled Patient/Family Regarding: Diagnosis, Need For Followup - Disposition Referrals: [facility] [Outside] - 07/20/17 Disposition: Routine/Home Disposition Time: 11:48 Condition: STABLE Additional Instructions: Return if not better in 3 days. Instructions: Normal Exam (ED)
== END 2017-07-19 12:15 | disposition home or self-care (01) ==
LOC: H.ER 11:10
DX: Z59.0 Homelessness (principal)

== ENCOUNTER 2017-08-19 14:23 | Emergency (ER) | payer MEDICAID ==
[2017-08-19 14:23] VITALS: BMI 26.6
[2017-08-19 16:45] LABS: HEMATOCRIT 37.9 % (34.0-47.0); MEAN CELL VOLUME 77.9 fl (81.0-99.0); MEAN CORPUSCULAR HEMOGLOBIN 24.8 pg (27.0-31.0); MEAN CORPUSCULAR HGB CONC 31.9 g/dL (33.0-37.0); RED CELL DISTRIBUTION WIDTH 14.1 % (11.5-14.5); WHITE BLOOD COUNT 6.5 K/uL (4.8-10.8)
[2017-08-19 16:52] LABS: URINE BILIRUBIN NEGATIVE (NEGATIVE); URINE BLOOD NEGATIVE (NEGATIVE); URINE COLOR COLORLESS (YELLOW); URINE GLUCOSE (UA) NEG (Normal); URINE KETONE NEGATIVE (NEGATIVE); URINE LEUKOCYTE ESTERASE NEG Leu/uL (Negative); URINE PROTEIN NEGATIVE (NEGATIVE); URINE UROBILINOGEN 0.2-1.0 mg/dL (0.2-1.0)
[2017-08-19 16:54] LABS: ALB/GLOB RATIO 1.2 (1.0-2.1); ALCOHOL SERUM < 10 mg/dl (0-10); ALKALINE PHOSPHATASE 140 U/L (38-126); ALT/SGPT 48 U/L (9-52); AST/SGOT 37 U/L (14-36); BILIRUBIN,TOTAL 0.4 mg/dl (0.2-1.3); BLOOD UREA NITROGEN 14 mg/dl (7-17); CALCIUM 9.2 mg/dL (8.4-10.2); CARBON DIOXIDE 27 mmol/L (22-30); CHLORIDE 105 mmol/L (98-107); GFR AFRICAN-AMERICAN > 60; GLUCOSE,RANDOM 95 mg/dL (65-105); POTASSIUM 4.3 MMOL/L (3.6-5.0); SODIUM 141 mmol/l (132-148); TOTAL PROTEIN 7.8 G/DL (6.3-8.2)
--- NOTE | 2017-08-19 20:53 | ED PDOC ---
HPI: Psych/Substance Abuse Time Seen by Provider: 08/19/17 14:27 Chief Complaint (Nursing): Psychiatric Evaluation Chief Complaint (Provider): Psychiatric Evaluation Additional Complaint(s): 57 y/o female with past medical history of depression, bipolar disorder and schizophrenia presents to ED with EMS and [place] [employer] for psychiatric evaluation. A Good Jaxon called the police when he saw her planning to jump in the [place]. Patient reports feeling depressed and suicidal, with plan to jump into the [place]. Patient has premonition of future but denies hallucinations, homicidal ideation, suicidal ideation and any further medical complaints. PMD: Radha Mireles MD Past Medical History Reviewed: Historical Data, Nursing Documentation, Vital Signs Vital Signs: Last Vital Signs Temp 97.0 F L 08/19/17 14:28 Pulse 76 08/19/17 14:28 Resp 16 08/19/17 14:28 BP 113/74 08/19/17 14:28 Pulse Ox 99 08/19/17 14:28 - Medical History PMH: Anxiety, Arthritis, Asthma, Bipolar Disorder, CVA, Depression, Pneumonia, Schizophrenia Denies: Diabetes, Hepatitis, HIV, HTN, Chronic Kidney Disease, Seizures, Sexually Transmitted Disease - Surgical History Surgical History: Back Surgery - Family History Family History: States: Unknown Family Hx - Social History Current smoker - smoking cessation education provided: No Alcohol: None Drugs: Denies - Immunization History Hx Tetanus Toxoid Vaccination: No (Never smoked) Hx Influenza Vaccination: Yes Hx Pneumococcal Vaccination: Yes - Home Medications Home Medications: Ambulatory Orders Medication Instructions Recorded Albuterol HFA [Ventolin HFA 90 2 puff INH Q4 PRN 08/02/16 mcg/actuation (8 g)] Aspirin [Aspirin Chewable] 81 mg PO DAILY 08/02/16 Naproxen [Naprosyn Tab] 1 tab PO DAILY 08/02/16 Pantoprazole [Protonix EC Tab] 20 mg PO DAILY 08/02/16 clonazePAM [Klonopin] 1 tab PO DAILY 08/02/16 Fluticasone Nasal [Flonase] 1 spray NS DAILY #1 bottle 10/28/16 Ibuprofen [Motrin] 400 mg PO Q6 #30 tab 10/31/16 predniSONE [predniSONE Tab] 40 mg PO DAILY 3 Days tab 11/20/16 Albuterol 0.083% [Albuterol 0.083% 2.5 mg IH Q4 PRN #20 neb 11/28/16 Inhal Sandra (2.5 mg/3 ml) UD] Naproxen [Naprosyn] 500 mg PO BID PRN #14 tablet 11/28/16 Dicyclomine [Bentyl] 20 mg PO Q12 PRN #20 tab 12/19/16 Cyclobenzaprine [Cyclobenzaprine 10 mg PO Q8 PRN #10 tab 01/08/17 HCl] FLUoxetine [Prozac] 10 mg PO DAILY 01/24/17 Guaifenesin/Pseudoephedrne HCl 1 ter PO Q12H PRN #10 ter 03/13/17 [Mucinex D 600 mg-60 mg] Naproxen [Naprosyn] 500 mg PO Q12H #20 tab 05/21/17 Naproxen [Naprosyn] 500 mg PO Q12H #20 tab 06/23/17 - Allergies Allergies/Adverse Reactions: Allergies Allergy/AdvReac Type Severity Reaction Status Date / Time No Known Allergies Allergy Verified 08/19/17 14:28 Review of Systems ROS Statement: Except As Marked, All Systems Reviewed And Found Negative (As per HPI, otherwise negative) Psych: Positive for: Depression (Premonition), Suicidal ideation. Negative for : Other (homicidal ideation and hallucinations) Physical Exam - Reviewed Nursing Documentation Reviewed: Yes Vital Signs Reviewed: Yes - Physical Exam Appears: Positive for: In Acute Distress Head Exam: Positive for: ATRAUMATIC, NORMAL INSPECTION, NORMOCEPHALIC Skin: Positive for: Normal Color, Warm, Dry Eye Exam: Positive for: Normal appearance ENT: Positive for: Normal ENT Inspection Neck: Positive for: Normal Cardiovascular/Chest: Positive for: Regular Rate, Rhythm Respiratory: Positive for: Normal Breath Sounds. Negative for: Accessory Muscle Use, Respiratory Distress Gastrointestinal/Abdominal: Positive for: Normal Exam Back: Positive for: Normal Inspection Extremity: Positive for: Normal ROM. Negative for: Deformity Neurologic/Psych: Positive for: Alert, Oriented, Gait. Negative for: Facial Droop - Laboratory Results Result Diagrams: 08/19/17 16:00 08/19/17 16:00 - ECG O2 Sat by Pulse Oximetry: 99 (RA) Pulse Ox Interpretation: Normal Medical Decision Making Medical Decision Making: Time: 15:04 Plan: 1:1 obs for suicide precaution Crisis Evaluation Time: 16:00 Plan: Alcohol serum CMP Urine drug screen EKG CBC Ativan 2mg IM Urine culture Urinalysis Pt remains calm in ER after ativan. Pt referred to [facility]. Labd and EKG normal. Scribe Attestation: Documented by Yamilka Lloyd acting as a scribe for SANDY Galvin. Scribe Attestation: All medical record entries made by the Scribe were at my direction and personally dictated by me. I have reviewed the chart and agree that the record accurately reflects my personal performance of the history, physical exam, medical decision making, and the department course for this patient. I have also personally directed, reviewed, and agree with the discharge instructions and disposition. Disposition - Clinical Impression Clinical Impression: Psychiatric illness - Patient ED Disposition Is Patient to be Admitted: Transfer of Care - Disposition Disposition: Transfer of Care Disposition Time: 23:58 Condition: GOOD Forms: [employer] (Martiniquais)
--- NOTE | 2017-08-20 00:21 | ED PDOC ---
- Laboratory Results Result Diagrams: 08/19/17 16:00 08/19/17 16:00 - ECG O2 Sat by Pulse Oximetry: 99 (RA) - Progress ED Course And Treament: 0000 Signed out to me pending [facility] screen 0020 On my initial evaluation, pt. in no distress. Sleeping comfortably. Arousable to verbal stimuli. Offers no complaints at this time. Still pending [facility]. 0355 Pt. evaluated by [facility] screener and pt. will be transferred to [facility]. Disposition - Clinical Impression Clinical Impression: Schizoaffective disorder, bipolar type - POA Present On Arrival: None - Disposition Disposition: Transfer of Care (Signed out to Dr. Mcwilliams pending [facility] transfer) Disposition Time: 06:00 Condition: STABLE Forms: [employer] (Gambian)
--- NOTE | 2017-08-20 05:59 | ED PDOC ---
- Laboratory Results Result Diagrams: 08/19/17 16:00 08/19/17 16:00 - ECG O2 Sat by Pulse Oximetry: 99 (RA) Medical Decision Making Medical Decision Makin:00 Patient endorsed to me by Judson Monroy PA-C, pending [facility] transfer. 7:[address] Pretty pending [facility] transfer. Scribe Attestation: Documented by Ruth Ann Zabala, acting as a scribe for Stefano Mcwilliams MD. Provider Scribe Attestation: All medical record entries made by the Scribe were at my direction and personally dictated by me. I have reviewed the chart and agree that the record accurately reflects my personal performance of the history, physical exam, medical decision making, and the department course for this patient. I have also personally directed, reviewed, and agree with the discharge instructions and disposition. Disposition - Clinical Impression Clinical Impression: Schizoaffective disorder, bipolar type - POA Present On Arrival: None - Disposition Disposition: Transfer of Care Disposition Time: 07:00 Condition: STABLE Forms: [employer] (Turkmen) Patient Signed Over To: Yina Pretty
--- NOTE | 2017-08-20 07:17 | ED PDOC ---
- Laboratory Results Result Diagrams: 08/19/17 16:00 08/19/17 16:00 - ECG O2 Sat by Pulse Oximetry: 99 (RA) Pulse Ox Interpretation: Normal Medical Decision Making Medical Decision Making: Time: 7:00 --Patient transferred to dc by Dr. Stefano Mcwilliams pending [facility] transfer. Scribe Attestation: Documented by Sridhar Swan, acting as a scribe for Yina Pretty MD Provider Scribe Attestation: All medical record entries made by the Scribe were at my direction and personally dictated by me. I have reviewed the chart and agree that the record accurately reflects my personal performance of the history, physical exam, medical decision making, and the department course for this patient. I have also personally directed, reviewed, and agree with the discharge instructions and disposition. Disposition - Clinical Impression Clinical Impression: Schizoaffective disorder, bipolar type - POA Present On Arrival: None - Disposition Disposition: Other Institution ([facility]) Disposition Time: 07:00 Condition: STABLE Forms: [employer] (Greenlandic)
--- NOTE | 2017-08-20 09:22 | RAD ---
HISTORY: [facility] evaluation COMPARISON: 07/18/2017 FINDINGS: LUNGS: No active pulmonary disease. PLEURA: No significant pleural effusion identified, no pneumothorax apparent. CARDIOVASCULAR: Normal. OSSEOUS STRUCTURES: No significant abnormalities. Healed posterior lateral right rib fractures. VISUALIZED UPPER ABDOMEN: Normal. OTHER FINDINGS: None. IMPRESSION: No active disease. No significant interval change compared to the prior examination(s).
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
--- NOTE | 2017-08-20 19:07 | CARD ---
APPROVED REPORT EKG Measurement Heart [id number] <Conclusion> Normal sinus rhythm Normal ECG
--- NOTE | 2017-08-21 06:54 | ED PDOC ---
- Laboratory Results Result Diagrams: 08/19/17 16:00 08/19/17 16:00 - ECG O2 Sat by Pulse Oximetry: 98 Medical Decision Making Medical Decision Makin Patient signed out to me from day team pending [facility] [place] [place] bed availability. No acute events occurred overnight. 0700. Patient will be signed out to Scottie Urbina MD pending [facility] [place] [place] bed availability. Scribe Attestation: Documented by Leonor Sanders acting as a scribe for Stefano Mcwilliams MD. Scribe Attestation: All medical record entries made by the Scribe were at my direction and personally dictated by me. I have reviewed the chart and agree that the record accurately reflects my personal performance of the history, physical exam, medical decision making, and the department course for this patient. I have also personally directed, reviewed, and agree with the discharge instructions and disposition. Disposition - Clinical Impression Clinical Impression: Schizoaffective disorder, bipolar type - POA Present On Arrival: None - Disposition Disposition: Transfer of Care Disposition Time: 07:00 Condition: STABLE Forms: [facility] (Bulgarian) Patient Signed Over To: Scottie Urbina Handoff Comments: pending [facility] [place] [place] bed availability
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
[2017-08-21 12:18] VITALS: BP 122/71; PULSE 88; RESP 18; TEMP 98.7; O2SAT 99
== END 2017-08-21 12:18 | disposition short-term general hospital (02) ==
LOC: H.ER 14:23
DX: R45.851 Suicidal ideations (principal); F32.9 Major depressive disorder, single episode, unspecified; F25.0 Schizoaffective disorder, bipolar type; F41.9 Anxiety disorder, unspecified; F23 Brief psychotic disorder; J45.909 Unspecified asthma, uncomplicated; Z79.82 Long term (current) use of aspirin; Z86.73 Personal history of transient ischemic attack (TIA), and cerebral infarction without residual deficits
CPT/HCPCS: 71010; 80053; 80320; 80324; 80345; 80346; 80349; 80353; 80358; 80361; 81003; 83992; 85027; 87086; 93005; 96372; 99285; J1630; J2060

== ENCOUNTER 2017-10-23 23:43 | Emergency (ER) | payer MEDICAID ==
[2017-10-23 23:43] VITALS: BMI 26.6
[2017-10-24 01:33] VITALS: BP 137/76; PULSE 89; RESP 18; TEMP 98.2; O2SAT 98
[2017-10-24 02:50] LABS: SQUAMOUS EPITHIAL 1 /hpf (0-5); URINE BACTERIA RARE (<OCC); URINE BILIRUBIN NEGATIVE (NEGATIVE); URINE BLOOD NEGATIVE (NEGATIVE); URINE CLARITY SLIGHTY-CLOUDY (Clear); URINE COLOR YELLOW (YELLOW); URINE GLUCOSE (UA) NEG (Normal); URINE LEUKOCYTE ESTERASE LARGE Leu/uL (Negative); URINE NITRATE NEGATIVE (NEGATIVE); URINE PROTEIN 30 mg/dL (NEGATIVE); URINE UROBILINOGEN 0.2-1.0 mg/dL (0.2-1.0)
--- NOTE | 2017-10-24 02:56 | ED PDOC ---
HPI: Back Time Seen by Provider: 10/24/17 01:25 Chief Complaint (Nursing): Back Pain Chief Complaint (Provider): Back Pain History Per: Patient History/Exam Limitations: no limitations Current Symptoms Are (Timing): Still Present Additional Complaint(s): 57 y/o female presents to the ED complaining of left flank pain and lower back pain x 1 week. Notes taking ibuprofen with mild relief. Denies any associated injury, fever, chills, nausea, vomiting, diarrhea, urinary symptoms or any further medical complaints. PMD: Radha Mireles MD Past Medical History Reviewed: Historical Data, Nursing Documentation, Vital Signs Vital Signs: Last Vital Signs Temp 98.2 F 10/24/17 01:01 Pulse 89 10/24/17 01:01 Resp 18 10/24/17 01:01 BP 137/76 10/24/17 01:01 Pulse Ox 98 10/24/17 01:01 - Medical History PMH: Anxiety, Arthritis, Asthma, Bipolar Disorder, CVA, Depression, Pneumonia, Schizophrenia Denies: Diabetes, Hepatitis, HIV, HTN, Chronic Kidney Disease, Seizures, Sexually Transmitted Disease - Surgical History Surgical History: Back Surgery - Family History Family History: States: Unknown Family Hx - Living Arrangements Living Arrangements: Other (Homeless) - Immunization History Hx Tetanus Toxoid Vaccination: No (Never smoked) Hx Influenza Vaccination: Yes Hx Pneumococcal Vaccination: Yes - Home Medications Home Medications: Ambulatory Orders Medication Instructions Recorded clonazePAM [Klonopin] 0.5 mg PO DAILY 08/02/16 FLUoxetine [Prozac] 10 mg PO DAILY 01/24/17 Ibuprofen [Motrin] 600 mg PO Q6 08/21/17 Nitrofurantoin Macrocrystals 100 mg PO BID #14 cap 10/24/17 [Macrobid] - Allergies Allergies/Adverse Reactions: Allergies Allergy/AdvReac Type Severity Reaction Status Date / Time almond Allergy Mild SWELLING Verified 10/24/17 01:33 avocado Allergy Mild RASH Verified 10/24/17 01:33 Review of Systems ROS Statement: Except As Marked, All Systems Reviewed And Found Negative (As per HPI, otherwise negative) Musculoskeletal: Positive for: Back Pain Physical Exam - Reviewed Nursing Documentation Reviewed: Yes Vital Signs Reviewed: Yes - Physical Exam Appears: Positive for: Non-toxic, No Acute Distress Head Exam: Positive for: ATRAUMATIC, NORMAL INSPECTION, NORMOCEPHALIC Skin: Positive for: Normal Color, Warm, Dry Eye Exam: Positive for: EOMI, Normal appearance, PERRL ENT: Positive for: Normal ENT Inspection Neck: Positive for: Normal, Painless ROM, Supple Cardiovascular/Chest: Positive for: Regular Rate, Rhythm. Negative for: Murmur Respiratory: Positive for: Normal Breath Sounds. Negative for: Accessory Muscle Use, Respiratory Distress Gastrointestinal/Abdominal: Positive for: Normal Exam, Bowel Sounds, Soft. Negative for: Tenderness Back: Positive for: Other (Mild CVA tenderness) Extremity: Positive for: Normal ROM. Negative for: Deformity Neurologic/Psych: Positive for: Alert, Oriented (x3) - ECG O2 Sat by Pulse Oximetry: 98 (RA) Pulse Ox Interpretation: Normal Medical Decision Making Medical Decision Making: Time: 02:11 Initial Impression: 57 y/o female with back pain Plan: Drug screen Urine Urine dipstick Urinalysis Reevaluation --Patient was given medications but she denied and stated that she will take her own ibuprofen. Time: 04:25 --Urine labs were indicative of UTI. Upon provider reevaluation patient is feeling better, is medically stable, and requires no further treatment in the ED at this time. Patient will be discharged home with Rx for Macrobid 100mg PO. Counseling was provided and all questions were answered regarding diagnosis and need for follow up with PMD. There is agreement to discharge plan. Return if symptoms persist or worsen. Clinical Impression: UTI Scribe Attestation: Documented by Yamilka Lloyd acting as a scribe for Chris Diamond MD. Scribe Attestation: All medical record entries made by the Scribe were at my direction and personally dictated by me. I have reviewed the chart and agree that the record accurately reflects my personal performance of the history, physical exam, medical decision making, and the department course for this patient. I have also personally directed, reviewed, and agree with the discharge instructions and disposition. Disposition - Clinical Impression Clinical Impression: UTI (urinary tract infection) - Disposition Disposition: Routine/Home Disposition Time: 04:25 Condition: STABLE Prescriptions: Nitrofurantoin Macrocrystals [Macrobid] 100 mg PO BID #14 cap Instructions: Urinary Tract Infections in Adults Forms: [facility] (Hungarian)
[2017-10-24 03:18] LABS: BARBITURATES, UR NEGATIVE (NEGATIVE); BENZODIAZEPINES, UR NEGATIVE (NEGATIVE); OPIATES, UR NEGATIVE (NEGATIVE); PHENCYCLIDINE, UR NEGATIVE (NEGATIVE)
== END 2017-10-24 04:58 | disposition home or self-care (01) ==
LOC: H.ER 23:43
DX: N39.0 Urinary tract infection, site not specified (principal)

== ENCOUNTER 2017-11-02 12:03 | Emergency (ER) | payer MEDICAID ==
[2017-11-02 12:03] VITALS: BMI 26.6
[2017-11-02 12:14] VITALS: BP 113/74; PULSE 85; RESP 16; O2SAT 98
[2017-11-02 12:36] VITALS: TEMP 98.5
--- NOTE | 2017-11-02 13:15 | ED PDOC ---
HPI: Skin/Bite Injury Time Seen by Provider: 11/02/17 12:25 Chief Complaint (Nursing): Abnormal Skin Integrity Chief Complaint (Provider): Rash History Per: Patient History/Exam Limitations: no limitations Onset/Duration Of Symptoms: Days (several) Current Symptoms Are (Timing): Still Present Quality Of Symptoms: Itching Additional Complaint(s): Agata Badillo is a 57 year old female, with no significant past medical history, who presents to the emergency department complaining of a red itchy rash on her shoulders, chest and upper back onset for several days. Patient states nothing makes it better or worst, she did not take any medications to improve symptoms. Patient is non domicile and denies eating anything new or using new lotions. She denies any fever, chills, urinary symptoms, sore throat, throat swelling, tongue or lip swelling, dyspnea, cough, wheezing, abdominal pain, nausea, or vomit. No further medical complaints. PMD: None provided. Past Medical History Reviewed: Historical Data, Nursing Documentation, Vital Signs Vital Signs: Last Vital Signs Temp 98.5 F 11/02/17 12:32 Pulse 85 11/02/17 12:32 Resp 16 11/02/17 12:32 BP 113/74 11/02/17 12:32 Pulse Ox 98 11/02/17 13:24 - Medical History PMH: Anxiety, Arthritis, Asthma, Bipolar Disorder, CVA, Depression, Pneumonia, Schizophrenia Denies: Diabetes, Hepatitis, HIV, HTN, Chronic Kidney Disease, Seizures, Sexually Transmitted Disease - Surgical History Surgical History: Back Surgery - Family History Family History: States: Unknown Family Hx - Social History Current smoker - smoking cessation education provided: No Alcohol: None Drugs: Denies - Immunization History Hx Tetanus Toxoid Vaccination: No (Never smoked) Hx Influenza Vaccination: Yes Hx Pneumococcal Vaccination: Yes - Home Medications Home Medications: Ambulatory Orders Medication Instructions Recorded clonazePAM [Klonopin] 0.5 mg PO DAILY 08/02/16 FLUoxetine [Prozac] 10 mg PO DAILY 01/24/17 Ibuprofen [Motrin] 600 mg PO Q6 08/21/17 Nitrofurantoin Macrocrystals 100 mg PO BID #14 cap 10/24/17 [Macrobid] Cetirizine HCl [Zyrtec] 10 mg PO DAILY #30 capsule 11/02/17 Hydrocortisone Brianna 0.2% Cr 1 ea TP BID #15 tube 11/02/17 [[facility]] - Allergies Allergies/Adverse Reactions: Allergies Allergy/AdvReac Type Severity Reaction Status Date / Time almond Allergy Mild SWELLING Verified 10/24/17 01:33 avocado Allergy Mild RASH Verified 10/24/17 01:33 Review of Systems ROS Statement: Except As Marked, All Systems Reviewed And Found Negative Constitutional: Negative for: Fever ENT: Negative for: Mouth Swelling, Throat Pain, Throat Swelling Respiratory: Negative for: Cough, Shortness of Breath, Wheezing Gastrointestinal: Negative for: Nausea, Vomiting, Abdominal Pain Genitourinary Female: Negative for: Dysuria, Frequency, Incontinence Skin: Positive for: Rash (itchy on upper back, chest and ) Physical Exam - Reviewed Nursing Documentation Reviewed: Yes Vital Signs Reviewed: Yes - Physical Exam Comments: GENERAL APPEARANCE: Patient is awake, alert, oriented x 3, in no acute distress SKIN: (+) erythematous circular raised lesions in distribution on the shoulders , chest and upper back. Otherwise (-) excoriations, (-) drainage, (-) crusting of lesions is present. HENT: (-) conjunctival injection, (-) chemosis. Oropharynx: clear (-) tongue or lip swelling, (-) tonsillar exudates, (-) erythema. Airway: patent (-) stridor, (-) hoarseness. Mucous membranes moist. Nares: Patent (-) rhinorrhea. NECK: (-) lymphadenopathy, (-) tenderness. CARDIOVASCULAR: Normal rate and rhythm. (-) murmur, (-) gallop. CHEST: (-) rales, (-) wheezing, (-) dyspnea, (-) stridor. Breath sounds equal bilaterally. ABDOMEN: Soft. (-) tenderness, (-) distention, (-) HSM. NEURO: Mental status: Patient is alert, oriented, and with normal strength and tone. - ECG O2 Sat by Pulse Oximetry: 98 (RA) Pulse Ox Interpretation: Normal Medical Decision Making Medical Decision Making: Initial impression: Rash Based on history and exam, plan will be for outpatient f/u. Dx of possible contact dermatitis vs bed bugs d/w the patient. Advised to follow up with clinic in 1-2 days without fail. Advised to take medication as prescribed. Return to the emergency room at any time for any new or worsening symptoms. Patient states she fully agrees with and understands discharge instructions. States that she agrees with the plan and disposition. Verbalized and repeated discharge instructions and plan. I have given the patient opportunity to ask any additional questions. ~ Scribe Attestation: Documented by Mariano Braxton, acting as a scribe for Pauline Bunn PA-C. Provider Scribe Attestation: All medical record entries made by the Scribe were at my direction and personally dictated by me. I have reviewed the chart and agree that the record accurately reflects my personal performance of the history, physical exam, medical decision making, and the department course for this patient. I have also personally directed, reviewed, and agree with the discharge instructions and disposition. Disposition - Clinical Impression Clinical Impression: Rash - Patient ED Disposition Is Patient to be Admitted: No Counseled Patient/Family Regarding: Diagnosis, Need For Followup, Rx Given - Disposition Referrals: [facility] [Outside] Disposition: Routine/Home Disposition Time: 13:00 Condition: STABLE Additional Instructions: Thank you for letting us take care of you today. You were treated for rash. The emergency medical care you received today was directed at your acute symptoms. If you were prescribed any medication, please fill it and take as directed. It may take several days for your symptoms to resolve. Return to the Emergency Department if your symptoms worsen, do not improve, or if you have any other problems. Please call one of the physicians/clinics you have been referred to that are listed on the Patient Visit Information form that is included in your discharge packet. Bring any paperwork you were given at discharge with you along with any medications you are taking to your follow up visit. Our treatment cannot replace ongoing medical care by a primary care provider (PCP) outside of the emergency department. Thank you for allowing the [facility] team to be part of your care today. Prescriptions: Cetirizine HCl [Zyrtec] 10 mg PO DAILY #30 capsule Hydrocortisone Brianna 0.2% Cr [[place]] 1 ea TP BID #15 tube Instructions: Skin Rash (DC) Forms: [facility] (Taiwanese) - PA / EPIC INTERFACE ANALYST / Resident Statement MD/DO has reviewed & agrees with the documentation as recorded.
== END 2017-11-02 13:40 | disposition home or self-care (01) ==
LOC: H.ER 12:03
DX: R21 Rash and other nonspecific skin eruption (principal)

== ENCOUNTER 2017-11-13 08:14 | Emergency (ER) | payer MEDICAID ==
[2017-11-13 08:14] VITALS: BMI 26.6
[2017-11-13 08:17] VITALS: O2SAT 98
[2017-11-13 08:28] VITALS: RESP 20
--- NOTE | 2017-11-13 08:51 | ED PDOC ---
Lower Extremity Pain/Injury Time Seen by Provider: 11/13/17 08:39 Chief Complaint (Nursing): Weakness/Neurological Deficit Chief Complaint (Provider): Weakness/Neurological Deficit History Per: Patient History/Exam Limitations: no limitations Onset/Duration Of Symptoms: Sudden Onset Current Symptoms Are (Timing): Still Present Additional Complaint(s): 57 year old female with medical history of arthritis, bipolar disorder and schizophrenia, presents to the emergency department with a complaint of bilateral leg weakness and numbness that comes and goes for months. Patient stated she was in [employer] prior to arrival and suddenly could not ambulate with pins and needle sensations. Denied any urinary issues, diarrhea or constipation. Patient also reported a pending replacement surgery for a "pin in her spine" at the end of December 2017. PMD: none provided Past Medical History Reviewed: Historical Data, Nursing Documentation, Vital Signs Vital Signs: Last Vital Signs Temp 97.4 F L 11/13/17 08:23 Pulse 74 11/13/17 08:23 Resp 20 11/13/17 08:23 BP 108/60 11/13/17 08:16 Pulse Ox 98 11/13/17 08:23 - Medical History PMH: Anxiety, Arthritis, Asthma, Bipolar Disorder, CVA, Depression, Pneumonia, Schizophrenia Denies: Diabetes, Hepatitis, HIV, HTN, Chronic Kidney Disease, Seizures, Sexually Transmitted Disease - Surgical History Surgical History: Back Surgery - Family History Family History: States: Unknown Family Hx - Social History Current smoker - smoking cessation education provided: No Alcohol: None Drugs: Denies - Immunization History Hx Tetanus Toxoid Vaccination: No (Never smoked) Hx Influenza Vaccination: Yes Hx Pneumococcal Vaccination: Yes - Home Medications Home Medications: Ambulatory Orders Medication Instructions Recorded clonazePAM [Klonopin] 0.5 mg PO DAILY 08/02/16 FLUoxetine [Prozac] 10 mg PO DAILY 01/24/17 Ibuprofen [Motrin] 600 mg PO Q6 08/21/17 Nitrofurantoin Macrocrystals 100 mg PO BID #14 cap 10/24/17 [Macrobid] Cetirizine HCl [Zyrtec] 10 mg PO DAILY #30 capsule 11/02/17 Hydrocortisone Brianna 0.2% Cr 1 ea TP BID #15 tube 11/02/17 [Westcort] - Allergies Allergies/Adverse Reactions: Allergies Allergy/AdvReac Type Severity Reaction Status Date / Time almond Allergy Mild SWELLING Verified 11/13/17 08:22 avocado Allergy Mild RASH Verified 11/13/17 08:22 Review of Systems ROS Statement: Except As Marked, All Systems Reviewed And Found Negative Gastrointestinal: Negative for: Diarrhea, Constipation Genitourinary Female: Negative for: Dysuria, Incontinence, Hematuria Neurological: Positive for: Weakness (bilateral leg), Numbness (bilateral leg) Physical Exam - Reviewed Nursing Documentation Reviewed: Yes Vital Signs Reviewed: Yes - Physical Exam Appears: Positive for: Non-toxic, No Acute Distress Neurologic/Psych: Positive for: Alert, Oriented, Mood/Affect (agitated and uncooperative) - ECG O2 Sat by Pulse Oximetry: 98 (RA) Pulse Ox Interpretation: Normal Medical Decision Making Medical Decision Making: Initial Impression: B/L lower extremity weakness Time: 1045 --Patient is noted with steady gait as she ambulated to the bathroom. Scribe Attestation: Documented by Teresa King, acting as a scribe for Adriana Hodge MD. Provider Scribe Attestation: All medical record entries made by the Scribe were at my direction and personally dictated by me. I have reviewed the chart and agree that the record accurately reflects my personal performance of the history, physical exam, medical decision making, and the department course for this patient. I have also personally directed, reviewed, and agree with the discharge instructions and disposition. patient ambulated to the bathroom with steady gait. escorted by [facility] Disposition - Clinical Impression Clinical Impression: Chronic pain of lower extremity, bilateral - Patient ED Disposition Is Patient to be Admitted: No Doctor Will See Patient In The: Office Counseled Patient/Family Regarding: Diagnosis, Need For Followup, Rx Given - Disposition Referrals: [facility] [Outside] [facility] [Outside] Disposition: Routine/Home Disposition Time: 11:00 Condition: STABLE Instructions: Peripheral Neuropathy (DC) Forms: [facility] (Italian) - POA Present On Arrival: None
[2017-11-13 11:36] VITALS: BP 120/80; PULSE 70; TEMP 98
== END 2017-11-13 11:36 | disposition home or self-care (01) ==
LOC: H.ER 08:14
DX: G89.29 Other chronic pain (principal)

== ENCOUNTER 2017-11-24 09:39 | Emergency (ER) | payer MEDICAID ==
--- NOTE | 2017-11-24 09:56 | ED PDOC ---
HPI: Psych/Substance Abuse Time Seen by Provider: 11/24/17 09:46 History Per: Patient Onset/Duration Of Symptoms: Unknown Current Symptoms Are (Timing): Still Present Modifying Factor(s): None Severity: Moderate Associated Symptoms: Depression, Suicidal Thoughts Additional Complaint(s): Feels depressed and wants to jump in [employer]. No specific trigger. Ran out of psych meds. Past Medical History - Medical History PMH: Anxiety, Arthritis, Asthma, Bipolar Disorder, CVA, Depression, Pneumonia, Schizophrenia Denies: Diabetes, Hepatitis, HIV, HTN, Chronic Kidney Disease, Seizures, Sexually Transmitted Disease - Surgical History Surgical History: Back Surgery - Family History Family History: States: Unknown Family Hx - Immunization History Hx Tetanus Toxoid Vaccination: No (Never smoked) Hx Influenza Vaccination: Yes Hx Pneumococcal Vaccination: Yes - Home Medications Home Medications: Ambulatory Orders Medication Instructions Recorded clonazePAM [Klonopin] 0.5 mg PO DAILY 08/02/16 FLUoxetine [Prozac] 10 mg PO DAILY 01/24/17 Ibuprofen [Motrin] 600 mg PO Q6 08/21/17 Nitrofurantoin Macrocrystals 100 mg PO BID #14 cap 10/24/17 [Macrobid] Cetirizine HCl [Zyrtec] 10 mg PO DAILY #30 capsule 11/02/17 Hydrocortisone Brianna 0.2% Cr 1 ea TP BID #15 tube 11/02/17 [Westcort] - Allergies Allergies/Adverse Reactions: Allergies Allergy/AdvReac Type Severity Reaction Status Date / Time almond Allergy Mild SWELLING Verified 11/13/17 08:22 avocado Allergy Mild RASH Verified 11/13/17 08:22 Review of Systems ROS Statement: Except As Marked, All Systems Reviewed And Found Negative Psych: Positive for: Depression, Suicidal ideation Physical Exam - Reviewed Nursing Documentation Reviewed: Yes Vital Signs Reviewed: Yes - Physical Exam Appears: Positive for: Non-toxic, No Acute Distress Head Exam: Positive for: ATRAUMATIC, NORMAL INSPECTION, NORMOCEPHALIC Skin: Positive for: Normal Color, Warm, DRY Eye Exam: Positive for: EOMI, Normal appearance, PERRL ENT: Positive for: Normal ENT Inspection Neck: Positive for: Normal, Painless ROM Cardiovascular/Chest: Positive for: Regular Rate, Rhythm Respiratory: Positive for: CNT, Normal Breath Sounds Gastrointestinal/Abdominal: Positive for: Normal Exam, Bowel Sounds, Soft Back: Positive for: Normal Inspection Extremity: Positive for: Normal ROM Neurologic/Psych: Positive for: Alert, Oriented - Laboratory Results Result Diagrams: 11/24/17 11:40 11/24/17 11:40 Medical Decision Making Medical Decision Making: Medically stable for psychiatric admission Disposition - Clinical Impression Clinical Impression: Depression - Patient ED Disposition Is Patient to be Admitted: Transfer of Care - Disposition Disposition: Transfer of Care Disposition Time: 16:58 Condition: FAIR Patient Signed Over To: Kody Irizarry III
[2017-11-24 11:58] LABS: URINE BILIRUBIN NEGATIVE (NEGATIVE); URINE BLOOD NEGATIVE (NEGATIVE); URINE CLARITY CLEAR (Clear); URINE GLUCOSE (UA) NEG (Normal); URINE LEUKOCYTE ESTERASE NEG Leu/uL (Negative); URINE PROTEIN NEGATIVE (NEGATIVE); URINE UROBILINOGEN 0.2-1.0 mg/dL (0.2-1.0)
[2017-11-24 12:01] LABS: BASO % 0.4 % (0.0-2.0); EOS # 0.1 K/uL (0.0-0.7); EOS % 1.8 % (0.0-4.0); HEMOGLOBIN 11.9 g/dL (12.0-16.0); LYMPH # 1.7 K/uL (1.0-4.3); LYMPH % 30.8 % (20.0-40.0); MEAN CELL VOLUME 79.2 fl (81.0-99.0); MEAN CORPUSCULAR HEMOGLOBIN 26.3 pg (27.0-31.0); MEAN CORPUSCULAR HGB CONC 33.3 g/dL (33.0-37.0); MONO # 0.3 K/uL (0.0-0.8); MONO % 5.7 % (0.0-10.0); NEUT # 3.3 K/uL (1.8-7.0); NEUT % 61.3 % (50.0-75.0); RBC 4.53 Mil/uL (3.80-5.20); WHITE BLOOD COUNT 5.4 K/uL (4.8-10.8)
[2017-11-24 12:03] LABS: URINE COLOR LIGHT YELLOW (YELLOW)
[2017-11-24 12:03] LABS: ALT/SGPT 38 U/L (9-52); AST/SGOT 27 U/L (14-36); BLOOD UREA NITROGEN 14 mg/dl (7-17); CALCIUM 9.5 mg/dL (8.4-10.2); GFR AFRICAN-AMERICAN > 60; GFR NON-AFRICAN AMERICAN > 60
[2017-11-24 12:17] LABS: BARBITURATES, UR NEGATIVE (NEGATIVE); BENZODIAZEPINES, UR NEGATIVE (NEGATIVE); OPIATES, UR NEGATIVE (NEGATIVE); PHENCYCLIDINE, UR NEGATIVE (NEGATIVE)
--- NOTE | 2017-11-24 12:37 | RAD ---
HISTORY: cough COMPARISON: 08/20/2017. FINDINGS: LUNGS: No active pulmonary disease. PLEURA: No significant pleural effusion identified, no pneumothorax apparent. CARDIOVASCULAR: No radiographic findings to suggest acute or significant cardiovascular disease. OSSEOUS STRUCTURES: No significant abnormalities. VISUALIZED UPPER ABDOMEN: Normal. OTHER FINDINGS: None. IMPRESSION: No active disease. No significant interval change compared to the prior examination(s).
--- NOTE | 2017-11-24 18:41 | ED PDOC ---
- Laboratory Results Result Diagrams: 11/24/17 11:40 11/24/17 11:40 - ECG O2 Sat by Pulse Oximetry: 99 Pulse Ox Interpretation: Normal - Progress ED Course And Treament: pt recd on endorsement at 5p from dr boykin pending crisis dispo, potential [facility] [place] screen bloodwork reviewed and clinically unremarkable patient has intermittent loud outbursts, remains in restraints as aggressive with poor directability and lack of insight 5pmvitals stable, remains somnolent 9pm per crisis awaiting [facility] [place] screen 1130p per crisis [facility] came but was too somnolent for interview, thus will return endorse Dr Diamond to follow overnight Disposition Counseled Patient/Family Regarding: Studies Performed, Diagnosis - Clinical Impression Clinical Impression: Depression - POA Present On Arrival: None - Disposition Disposition: Transfer of Care Disposition Time: 23:39 Condition: FAIR Forms: [facility] (Surinamese) Patient Signed Over To: Chris Diamond Handoff Comments: pending [facility] [place] screen
--- NOTE | 2017-11-25 00:43 | ED PDOC ---
- Laboratory Results Result Diagrams: 11/24/17 11:40 11/24/17 11:40 - ECG O2 Sat by Pulse Oximetry: 99 Medical Decision Making Medical Decision Makin Patient signed out to provider from Dr. Irizarry pending [facility] evaluation. Patient somnolent. Vitals stable. 0300 Patient resting comfortably. Vitals stable. 0600 Patient resting comfortably. Vitals stable. 0700 Patient signed out to Dr. Hodge pending [facility] screening. Scribe Attestation: Documented by Leonor Sanders acting as a scribe Chris Diamond MD. Scribe Attestation: All medical record entries made by the Scribe were at my direction and personally dictated by me. I have reviewed the chart and agree that the record accurately reflects my personal performance of the history, physical exam, medical decision making, and the department course for this patient. I have also personally directed, reviewed, and agree with the discharge instructions and disposition. Disposition - Clinical Impression Clinical Impression: Schizoaffective disorder - POA Present On Arrival: None - Disposition Disposition: Routine/Home Disposition Time: 07:00 Condition: FAIR Instructions: Schizoaffective Disorder Forms: [facility] (Frisian) Patient Signed Over To: Adriana Hodge Handoff Comments: pending [facility] screening
--- NOTE | 2017-11-25 07:09 | ED PDOC ---
- Laboratory Results Result Diagrams: 11/24/17 11:40 11/24/17 11:40 - ECG O2 Sat by Pulse Oximetry: 99 Medical Decision Making Medical Decision Making: Received patient from Dr. Diamond. Patient is medically cleared/stable and pending [facility] evaluation. Per [employer]. Seen by [facility]. Does not meet criteria. Dr. Sims cleared patient for discharge with dx: schizoaffective disorder. Disposition Doctor Will See Patient In The: Office Counseled Patient/Family Regarding: Diagnosis, Need For Followup - Clinical Impression Clinical Impression: Schizoaffective disorder - POA Present On Arrival: None - Disposition Disposition: Routine/Home Disposition Time: 10:54 Condition: FAIR Instructions: Schizoaffective Disorder Forms: [facility] (Moroccan)
[2017-11-25 08:30] VITALS: BP 108/68; PULSE 63; RESP 18; TEMP 97.2
--- NOTE | 2017-11-25 09:57 | CP.PCM.CON ---
History of Present Illness - History of Present Illness History of Present Illness: Psychiatry consult note CC: I don't need to be in the hospital HPI: 57 yo female w/ history of schizoaffective disorder presented to the ED w / suicidal ideation to jump off a bridge. Patient continues to have periods of agitation w/ poor insight and is requesting to be discharged from the ER. She denies AH/VH/paranoia, but patient is guarded and likely acutely psychotic w/ poor insight/judgment. A+ O x 3. PMH: Anxiety, Arthritis, Asthma, CVA, Pneumonia PPHx: Patient is involved with [facility] since December 2016. Multiple past psychiatric admissions, most recently involuntary. She is diagnosed with Schizoaffective Bipolar Type. Surgical History: Back Surgery SHx: She has a hx of alcohol and acid use. ALL: NKDA Impression: 57 yo female w/ schizoaffective disorder presents acutely decompensated w/ suicidal ideation. Patient needs to be screened by [facility] [place] for involuntary commitment. -Screen for involuntary psychiatric admission Past Patient History - Infectious Disease Hx of Infectious Diseases: None - Tetanus Immunizations Tetanus Immunization: Unknown - Past Medical History & Family History Past Medical History?: Yes - Past Social History Smoking Status: Never Smoked - CARDIAC Hx Hypertension: No - PULMONARY Hx Asthma: Yes Hx Pneumonia: Yes - NEUROLOGICAL Hx Seizures: No - HEENT Hx HEENT Problems: Yes (glasses) - RENAL Hx Chronic Kidney Disease: No - ENDOCRINE/METABOLIC Hx Endocrine Disorders: No - HEMATOLOGICAL/ONCOLOGICAL Hx Human Immunodeficiency Virus (HIV): No - INTEGUMENTARY Hx Dermatological Problems: No - MUSCULOSKELETAL/RHEUMATOLOGICAL Hx Arthritis: Yes - GASTROINTESTINAL Hx Gastrointestinal Disorders: No - GENITOURINARY/GYNECOLOGICAL Hx Sexually Transmitted Disorders: No - PSYCHIATRIC Hx Anxiety: Yes Hx Bipolar Disorder: Yes Hx Depression: Yes Hx Schizophrenia: Yes - SURGICAL HISTORY Hx Surgeries: Yes - ANESTHESIA Hx Anesthesia: Yes Hx Anesthesia Reactions: No Hx Malignant Hyperthermia: No Meds Allergies/Adverse Reactions: Allergies Allergy/AdvReac Type Severity Reaction Status Date / Time almond Allergy Mild SWELLING Verified 11/13/17 08:22 avocado Allergy Mild RASH Verified 11/13/17 08:22 Results - Vital Signs Recent Vital Signs: Last Vital Signs Temp 97.2 F L 11/25/17 08:29 Pulse 63 11/25/17 08:29 Resp 18 11/25/17 08:29 BP 108/68 11/25/17 08:29 Pulse Ox 100 11/25/17 08:29 - Labs Result Diagrams: 11/24/17 11:40 11/24/17 11:40 Labs: Laboratory Results - last 24 hr 11/24/17 11/24/17 11/24/17 11:40 11:40 11:45 WBC 5.4 RBC 4.53 Hgb 11.9 L Hct 35.9 MCV 79.2 L MCH 26.3 L MCHC 33.3 RDW 15.0 H Plt Count 239 MPV 7.0 L Neut % (Auto) 61.3 Lymph % (Auto) 30.8 [place] % (Auto) 5.7 Eos % (Auto) 1.8 Baso % (Auto) 0.4 Neut # (Auto) 3.3 Lymph # (Auto) 1.7 [place] # (Auto) 0.3 Eos # (Auto) 0.1 Baso # (Auto) 0.0 Sodium 143 Potassium 3.9 Chloride 103 Carbon Dioxide 25 Anion Gap 19 BUN 14 Creatinine 0.7 Est GFR ( Amer) > 60 Est GFR (Non-Af Amer) > 60 Random Glucose 98 Calcium 9.5 Total Bilirubin 0.5 AST 27 ALT 38 Alkaline Phosphatase 111 Total Protein 7.8 Albumin 4.0 Globulin 3.8 Albumin/Globulin Ratio 1.0 Urine Color Urine Clarity Urine pH Ur Specific [place] Urine Protein Urine Glucose (UA) Urine Ketones Urine Blood Urine Nitrate Urine Bilirubin Urine Urobilinogen Ur Leukocyte Esterase Urine RBC (Auto) Urine Microscopic WBC Urine Opiates Screen Negative Urine Methadone Screen Negative Ur Barbiturates Screen Negative Ur Phencyclidine Scrn Negative Ur Amphetamines Screen Negative U Benzodiazepines Scrn Negative U Oth Cocaine Metabols Negative U Cannabinoids Screen Negative Alcohol, Quantitative < 10 11/24/17 11:45 WBC RBC Hgb Hct MCV MCH MCHC RDW Plt Count MPV Neut % (Auto) Lymph % (Auto) [place] % (Auto) Eos % (Auto) Baso % (Auto) Neut # (Auto) Lymph # (Auto) [place] # (Auto) Eos # (Auto) Baso # (Auto) Sodium Potassium Chloride Carbon Dioxide Anion Gap BUN Creatinine Est GFR ( Amer) Est GFR (Non-Af Amer) Random Glucose Calcium Total Bilirubin AST ALT Alkaline Phosphatase Total Protein Albumin Globulin Albumin/Globulin Ratio Urine Color Light yellow Urine Clarity Clear Urine pH 7.0 Ur Specific [place] < 1.005 Urine Protein Negative Urine Glucose (UA) Neg Urine Ketones Negative Urine Blood Negative Urine Nitrate Negative Urine Bilirubin Negative Urine Urobilinogen 0.2-1.0 Ur Leukocyte Esterase Neg Urine RBC (Auto) 1 Urine Microscopic WBC < 1 Urine Opiates Screen Urine Methadone Screen Ur Barbiturates Screen Ur Phencyclidine Scrn Ur Amphetamines Screen U Benzodiazepines Scrn U Oth Cocaine Metabols U Cannabinoids Screen Alcohol, Quantitative
[2017-11-25 10:54] VITALS: O2SAT 99
--- NOTE | 2017-11-25 11:11 | CARD ---
APPROVED REPORT EKG Measurement Heart [id number] <Conclusion> Normal sinus rhythm Normal ECG
== END 2017-11-25 11:17 | disposition home or self-care (01) ==
LOC: H.ER 09:39
DX: F25.9 Schizoaffective disorder, unspecified (principal); F31.9 Bipolar disorder, unspecified; R45.851 Suicidal ideations; F32.9 Major depressive disorder, single episode, unspecified; F41.9 Anxiety disorder, unspecified; Z86.73 Personal history of transient ischemic attack (TIA), and cerebral infarction without residual deficits; J45.909 Unspecified asthma, uncomplicated
CPT/HCPCS: 71045; 80053; 80320; 80324; 80345; 80346; 80349; 80353; 80358; 80361; 81003; 83992; 85025; 93005; 96372; 99285; J1630; J2060

== ENCOUNTER 2017-12-10 07:05 | Emergency (ER) | payer MEDICAID ==
[2017-12-10 07:27] VITALS: BP 113/71; PULSE 80; RESP 20; TEMP 97.5
[2017-12-10 07:35] VITALS: O2SAT 98
--- NOTE | 2017-12-10 08:43 | ED PDOC ---
HPI: Eye Injury/Pain Time Seen by Provider: 12/10/17 07:36 Chief Complaint (Nursing): Eye Problem Chief Complaint (Provider): b/l eye discharge and itchiness History Per: Patient History/Exam Limitations: no limitations Onset/Duration Of Symptoms: Days (x1 week) Current Symptoms Are (Timing): Still Present Wears Contact Lens?: No Associated Symptoms: Itching, Discharge From Eye Additional Complaint(s): Agata Badillo is a 57 year old female, with no significant past medical history, who presents to the emergency department complaining of bilateral eye itchiness and discharge onset for x1 week. Patient reports it began on the left eye, but its now on both eyes. Patient does not wear contacts. She denies any fever, chills, runny nose or rash. No further medical complaints. PMD: None provided. Past Medical History Reviewed: Historical Data, Nursing Documentation, Vital Signs Vital Signs: Last Vital Signs Temp 97.5 F L 12/10/17 07:26 Pulse 80 12/10/17 07:26 Resp 20 12/10/17 07:26 BP 113/71 12/10/17 07:26 Pulse Ox 98 12/10/17 07:33 - Medical History PMH: Anxiety, Arthritis, Asthma, Bipolar Disorder, CVA, Depression, Pneumonia, Schizophrenia Denies: Diabetes, Hepatitis, HIV, HTN, Chronic Kidney Disease, Seizures, Sexually Transmitted Disease - Surgical History Surgical History: Back Surgery - Family History Family History: States: Unknown Family Hx - Living Arrangements Living Arrangements: Other (non domicile) - Social History Current smoker - smoking cessation education provided: No Alcohol: None Drugs: Denies - Immunization History Hx Tetanus Toxoid Vaccination: No Hx Influenza Vaccination: Yes Hx Pneumococcal Vaccination: Yes - Home Medications Home Medications: Ambulatory Orders Medication Instructions Recorded clonazePAM [Klonopin] 0.5 mg PO DAILY 08/02/16 FLUoxetine [Prozac] 10 mg PO DAILY 01/24/17 Ibuprofen [Motrin] 600 mg PO Q6 08/21/17 Nitrofurantoin Macrocrystals 100 mg PO BID #14 cap 10/24/17 [Macrobid] Cetirizine HCl [Zyrtec] 10 mg PO DAILY #30 capsule 11/02/17 Hydrocortisone Brianna 0.2% Cr 1 ea TP BID #15 tube 11/02/17 [Westcort] Tobramycin 0.3% [Tobrex 0.3% Ophth 1 drop OU Q4 #1 tube 12/10/17 Oint] - Allergies Allergies/Adverse Reactions: Allergies Allergy/AdvReac Type Severity Reaction Status Date / Time almond Allergy Mild SWELLING Verified 11/13/17 08:22 avocado Allergy Mild RASH Verified 11/13/17 08:22 Review of Systems ROS Statement: Except As Marked, All Systems Reviewed And Found Negative Constitutional: Negative for: Fever, Chills Eyes: Positive for: Redness (b/l eye discharge and itchiness) ENT: Negative for: Nose Discharge Skin: Negative for: Rash Physical Exam - Reviewed Nursing Documentation Reviewed: Yes Vital Signs Reviewed: Yes - Physical Exam Appears: Positive for: Well, Non-toxic, No Acute Distress Head Exam: Positive for: ATRAUMATIC, NORMAL INSPECTION, NORMOCEPHALIC Skin: Positive for: Normal Color, Warm, Dry Eye Exam: Positive for: EOMI, PERRL, Periorbital swelling, Conjunctival injection (b/l. No discharge) Neck: Positive for: Painless ROM Respiratory: Negative for: Respiratory Distress Extremity: Positive for: Normal ROM. Negative for: Deformity, Swelling Neurologic/Psych: Positive for: Alert, Oriented - ECG O2 Sat by Pulse Oximetry: 98 (RA) Pulse Ox Interpretation: Normal Medical Decision Making Medical Decision Making: Initial Impression: bilateral conjunctivitis, possibly bacterial or allergic. Initial Plan: --Will prescribe antibiotics. 09:33 Upon provider evaluation patient is medically stable, and requires no further treatment in the ED at this time. Patient will be discharged home with Rx for tobrex. Counseling was provided and all questions were answered regarding diagnosis. There is agreement to discharge plan. Return if symptoms persist or worsen. Disposition - Clinical Impression Clinical Impression: Conjunctivitis - Patient ED Disposition Is Patient to be Admitted: No Doctor Will See Patient In The: Office Counseled Patient/Family Regarding: Studies Performed, Diagnosis, Need For Followup - Disposition Referrals: [facility] [Outside] Disposition: Routine/Home Disposition Time: 09:33 Condition: FAIR Additional Instructions: Take your medications as instructed. Follow up with your PCP in 2-3 days. Prescriptions: Tobramycin 0.3% [Tobrex 0.3% Ophth Oint] 1 drop OU Q4 #1 tube Instructions: Conjunctivitis ([place])
== END 2017-12-10 09:40 | disposition home or self-care (01) ==
LOC: H.ER 07:05
DX: H10.9 Unspecified conjunctivitis (principal)

== ENCOUNTER 2017-12-19 11:54 | Emergency (ER) | payer MEDICAID ==
[2017-12-19 11:59] VITALS: BP 121/74; TEMP 97.8
[2017-12-19 12:08] VITALS: PULSE 81; RESP 18; O2SAT 100
[2017-12-19] MEDS ORDERED: Amoxicillin-Clav 875-125 mg Tab PO STA (12:30)
--- NOTE | 2017-12-19 12:43 | ED PDOC ---
HPI: General Adult Time Seen by Provider: 12/19/17 12:02 Chief Complaint (Nursing): Abnormal Skin Integrity Additional Complaint(s): 57 y/o F presents with R periorbital swelling and erythema x 3 days. Patient states she squeezed discharge from it last night but this morning, it was "refilled." She denies fever, trauma, vision change, pain with eye movement. She went to [facility] prior to arrival and saw a a upholstery sewer who instructed her to come to the ED for further management under the care of an building components designer. As the patient entered the ED, she fell but denies headstrike, LOC, nausea, or vomiting. She denies any lightheadedness, palpitations, chest pain, or dyspnea. According to ER staff, she is well known to the staff to fall on purpose. Security reviewed video surveillance and reported that she slowly brought herself to the floor in a controlled manner. Past Medical History Vital Signs: Last Vital Signs Temp 97.8 F 12/19/17 12:04 Pulse 81 12/19/17 12:04 Resp 18 12/19/17 12:04 BP 121/74 12/19/17 12:04 Pulse Ox 100 12/19/17 12:04 - Medical History PMH: Anxiety, Arthritis, Asthma, Bipolar Disorder, CVA, Depression, Pneumonia, Schizophrenia Denies: Diabetes, Hepatitis, HIV, HTN, Chronic Kidney Disease, Seizures, Sexually Transmitted Disease - Surgical History Surgical History: Back Surgery - Family History Family History: States: Unknown Family Hx - Immunization History Hx Tetanus Toxoid Vaccination: No Hx Influenza Vaccination: Yes Hx Pneumococcal Vaccination: Yes - Home Medications Home Medications: Ambulatory Orders Medication Instructions Recorded clonazePAM [Klonopin] 0.5 mg PO DAILY 08/02/16 FLUoxetine [Prozac] 10 mg PO DAILY 01/24/17 Ibuprofen [Motrin] 600 mg PO Q6 08/21/17 Nitrofurantoin Macrocrystals 100 mg PO BID #14 cap 10/24/17 [Macrobid] Cetirizine HCl [Zyrtec] 10 mg PO DAILY #30 capsule 11/02/17 Hydrocortisone Brianna 0.2% Cr 1 ea TP BID #15 tube 11/02/17 [Westcort] Tobramycin 0.3% [Tobrex 0.3% Ophth 1 drop OU Q4 #1 tube 12/10/17 Oint] Amoxicillin/Clavulanate [Augmentin 1 tab PO BID #20 tab 12/19/17 875 MG-125 MG] Tobramycin 0.3% [Tobrex 0.3% Ophth 2 drop OD Q4H #1 tube 12/19/17 Oint] - Allergies Allergies/Adverse Reactions: Allergies Allergy/AdvReac Type Severity Reaction Status Date / Time almond Allergy Mild SWELLING Verified 11/13/17 08:22 avocado Allergy Mild RASH Verified 11/13/17 08:22 Review of Systems ROS Statement: Except As Marked, All Systems Reviewed And Found Negative Constitutional: Negative for: Fever Eyes: Negative for: Vision Change Physical Exam - Physical Exam Comments: Gen: NAD Head: NC/AT Eyes: PERRL, EOMI. R eyelid and eyebrow erythema with fluctuant swelling with small amount of discharge. No pain with EOMI. No preauricular nodes palpable. No discharge from eye. ENT: MMM Neck: No midline tenderness Chest: No tenderness CV: Regular rate Lungs: CTA b/l Back: No midline tenderness Abd: Soft, NT Extremities: No tenderness, FROM x 4 Skin: As above Neuro: Alert - ECG O2 Sat by Pulse Oximetry: 100 Medical Decision Making Medical Decision Making: Called Dr. Maciel's (Ophtho guest relations coordinator) office, spoke with in office building components designer who recommends oral and topical antibiotics, warm compresses, and follow up. He specifically recommended against incision at this time. Given discharge instructions for orbital cellulitis for patient to refer to for when to return back to ED. Instructed to return for pain with eye movement, fever, worsening swelling or pain. Disposition - Clinical Impression Clinical Impression: Abscess of periorbital region - Patient ED Disposition Is Patient to be Admitted: No - Disposition Referrals: Dank Maciel MD [Staff Provider] - Disposition: Routine/Home Disposition Time: 12:46 Condition: STABLE Prescriptions: Amoxicillin/Clavulanate [Augmentin 875 MG-125 MG] 1 tab PO BID #20 tab Tobramycin 0.3% [Tobrex 0.3% Ophth Oint] 2 drop OD Q4H #1 tube Instructions: Orbital Cellulitis
[2017-12-19] MEDS ORDERED: Amoxicillin-Clav 875-125 mg Tab PO ONE (12:47)
[2017-12-19] MEDS: Tobramycin 0.3% OPHT SOLN OD STA ×2 (12:58→13:11)
== END 2017-12-19 13:05 | disposition home or self-care (01) ==
LOC: H.ER 11:54
DX: L03.213 Periorbital cellulitis (principal)